=== PATIENT | female | born 1945 | race Caucasian/White ===

== ENCOUNTER 2023-09-11 09:30 | Observation (INO) | payer MEDICARE, OTHER, SELFPAY ==
--- NOTE | 2023-09-11 09:39 | XR_ITS ---
The [address] [address] Patient Name: MAXIMINO RODRIGUEZ MRN: [id number] date: 1945 Sex: F Assigned Patient Location: ER Current Patient Location: .[facility] Accession/Order Number: [id number] Exam Date: 09/11/2023 10:08 Report Date: 09/11/2023 10:42 At the request of: CLARENCE ALLAN Procedure: XR foot RT min 3V EXAM: XR foot RT min 3V, XR ankle RT min 3V HISTORY: fall COMPARISON: None. TECHNIQUE: AP, lateral, oblique radiographs of the foot AP, lateral, oblique radiographs of the ankle labeled right FINDINGS: Foot: Plantar calcaneal enthesophyte. No acute fracture or dislocation the foot. Obliquely oriented fracture of the distal fibula noted at the ankle. There are mild degenerative changes of the first metatarsophalangeal joint. Demineralization. Ankle: Fracture of the distal fibula above the joint line. 0.2 cm of lateral displacement of distal fragment. Demineralization. Ankle soft tissue swelling. Plantar calcaneal enthesophyte. XR/XR foot RT min 3V IMPRESSION: Ankle: 1. Mildly displaced obliquely oriented distal fibular fracture extending above the joint line. Foot: 1. No acute osseous abnormality of the foot. Electronically authenticated by: KIM DAVIS Date: 09/11/2023 10:42
[2023-09-11 09:40] VITALS: BP 210/98; PULSE 98; RESP 18; TEMP 36.9; O2SAT 98; BMI 45.4
--- NOTE | 2023-09-11 09:40 | XR_ITS ---
The [address] [address] Patient Name: MAXIMINO RODRIGUEZ MRN: [id number] date: 1945 Sex: F Assigned Patient Location: ER Current Patient Location: .[facility] Accession/Order Number: [id number] Exam Date: 09/11/2023 10:08 Report Date: 09/11/2023 10:42 At the request of: CLARENCE ALLAN Procedure: XR ankle RT min 3V EXAM: XR foot RT min 3V, XR ankle RT min 3V HISTORY: fall COMPARISON: None. TECHNIQUE: AP, lateral, oblique radiographs of the foot AP, lateral, oblique radiographs of the ankle labeled right FINDINGS: Foot: Plantar calcaneal enthesophyte. No acute fracture or dislocation the foot. Obliquely oriented fracture of the distal fibula noted at the ankle. There are mild degenerative changes of the first metatarsophalangeal joint. Demineralization. Ankle: Fracture of the distal fibula above the joint line. 0.2 cm of lateral displacement of distal fragment. Demineralization. Ankle soft tissue swelling. Plantar calcaneal enthesophyte. XR/XR ankle RT min 3V IMPRESSION: Ankle: 1. Mildly displaced obliquely oriented distal fibular fracture extending above the joint line. Foot: 1. No acute osseous abnormality of the foot. Electronically authenticated by: KIM DAVIS Date: 09/11/2023 10:42
--- NOTE | 2023-09-11 09:46 | ED.LOWEXI1 ---
HPI - Extremity Injury (Lower) General Chief Complaint: Extremity Injury, Lower Stated Complaint: LOWER EXTREMITY INJURY/PAIN Time Seen by Provider: 09/11/23 09:39 Source: patient Mode of arrival: ambulance Limitations: physical limitation History of Present Illness HPI Narrative: 78-year-old female presents for right ankle and foot pain. She injured it last night getting into a car. She states she cannot bear weight on it now. She didn't hit her head and sustaining no other injuries. No knee pain. The pain is moderate. Related Data Home Medications Medication Instructions Recorded Confirmed levothyroxine 300 mcg tablet 300 mcg PO DAILY 09/11/23 09/11/23 metoprolol tartrate 100 mg tablet 100 mg PO DAILY 09/11/23 09/11/23 Allergies Allergy/AdvReac Type Severity Reaction Status Date / Time No Known Drug Allergies Allergy Verified 09/11/23 09:40 Review of Systems ROS Narrative A ten point review of systems is negative except as noted above. Exam Narrative Exam Narrative: Nurses note and vital signs reviewed and patient is not hypoxic. General: The patient appears well and in no apparent distress. Patient is resting comfortably on cart. Skin: Warm, dry, no pallor noted. There is no rash noted. Head: Normocephalic, atraumatic Eye: Normal conjunctiva, no drainage Ears, Nose, Mouth, and Throat: oral mucosa is moist. Nares patent. Cardiovascular: Regular Rate and Rhythm Respiratory: Patient is in no distress, no accessory muscle use, lungs are clear to auscultation, no wheezing, rales or rhonchi Back: non-tender GI: often nontender Musculoskeletal: bruising and swelling present in the right foot and ankle. Skin intact. Neurological: A&O, normal speech Psychiatric: Cooperative Constitutional Vital Signs, click to edit/add: Last Vital Signs Temp 98.4 F 09/11/23 09:40 Pulse 98 H 09/11/23 09:40 Resp 18 09/11/23 09:40 BP 210/98 H 09/11/23 09:40 Pulse Ox 98 09/11/23 09:40 O2 Del Method Room Air 09/11/23 09:40 Course Vital Signs Vital signs: Vital Signs Temperature 98.4 F 09/11/23 09:40 Pulse Rate 98 H 09/11/23 09:40 Respiratory Rate 18 12/10/23 09:40 Blood Pressure 210/98 H 09/11/23 09:40 Pulse Oximetry 98 09/11/23 09:40 Oxygen Delivery Method Room Air 09/11/23 09:40 Temperature 98.4 F 09/11/23 09:40 Pulse Rate 98 H 09/11/23 09:40 Respiratory Rate 18 09/11/23 09:40 Blood Pressure 210/98 H 09/11/23 09:40 Pulse Oximetry 98 09/11/23 09:40 Oxygen Delivery Method Room Air 09/11/23 09:40 MDM - Extremity Injury (Lower) MDM Narrative Medical decision making narrative: distal fibular fractures identified. Case discussed with Dr. Carver and the patient is being admitted to Dr. Ken with whom I also discussed the case. Short leg splint applied by me, application is appropriate, she is neurovascularly intact. Findings are discussed with the patient and her family. Differential Diagnosis Differential diagnosis: Likely ankle sprain and strain and ankle fracture Imaging Data foot and ankle x-rays: Radiologist's impression: Procedure: XR ankle RT min 3V EXAM: XR foot RT min 3V, XR ankle RT min 3V HISTORY: fall COMPARISON: None. TECHNIQUE: AP, lateral, oblique radiographs of the foot AP, lateral, oblique radiographs of the ankle labeled right FINDINGS: Foot: Plantar calcaneal enthesophyte. No acute fracture or dislocation the foot. Obliquely oriented fracture of the distal fibula noted at the ankle. There are mild degenerative changes of the first metatarsophalangeal joint. Demineralization. Ankle: Fracture of the distal fibula above the joint line. 0.2 cm of lateral displacement of distal fragment. Demineralization. Ankle soft tissue swelling. Plantar calcaneal enthesophyte. IMPRESSION: Ankle: 1. Mildly displaced obliquely oriented distal fibular fracture extending above the joint line. Foot: 1. No acute osseous abnormality of the foot. Electronically authenticated by: KIM DAVIS Date: 09/11/2023 10 Discharge Plan Discharge Chief Complaint: Extremity Injury, Lower Time of Disposition Decision: 11:19 Prescriptions / Home Meds: No Action levothyroxine 300 mcg tablet 300 mcg PO DAILY metoprolol tartrate 100 mg tablet 100 mg PO DAILY
[2023-09-11 11:10] VITALS: BP 190/88
--- NOTE | 2023-09-11 11:48 | ECG_ITS ---
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
[2023-09-11 11:56] LABS: Basophils Percent Auto 0.4 % (0.2-2.0); Eosinophils Absolute Auto 0.1 10^3/uL (0.0-0.7); Eosinophils Percent Auto 0.7 % (0.9-7.0); Hematocrit 35.2 % (36.0-48.0); Hemoglobin 12.5 g/dL (12.0-16.0); Immature Granulocytes Abs Auto 0.02 10^3/uL (0.00-0.03); Immature Granulocytes Pct Auto 0.2 % (0.0-0.5); Lymphocytes Absolute Auto 1.7 10^3/uL (1.2-3.8); Mean Corpuscular HGB Conc 35.5 g/dL (29.9-35.2); Mean Corpuscular Hemoglobin 34.7 pg (26.7-34.0); Mean Corpuscular Volume 97.8 fL (81.0-99.0); Mean Platelet Volume 11.1 fL (9.5-13.5); Monocytes Absolute Auto 0.7 10^3/uL (0.3-0.8); Monocytes Percent Auto 8.8 % (1.7-12.0); Neutrophils Absolute Auto 5.6 10^3/uL (1.4-6.5); Neutrophils Percent Auto 68.9 % (43.0-75.0); Platelet Count 189 10^3/uL (150-450); Red Cell Distribution Width 14.5 % (11.0-15.0); White Blood Count 8.2 10^3/uL (4.0-11.0)
[2023-09-11 12:08] LABS: Alanine Aminotransferase 16 U/L (14-59); Albumin Globulin Ratio 0.9; Albumin Level 3.4 g/dL (3.4-5.0); Alkaline Phosphatase 63 U/L (46-116); Anion Gap 15.1; Aspartate Amino Transferase 18 U/L (15-37); BUN Creatinine Ratio 15.3; Bilirubin Total 1.4 mg/dL (0.2-1.0); Calcium 8.7 mg/dL (8.5-10.1); Carbon Dioxide 23.8 mmol/L (21.0-32.0); Chloride 107 mmol/L (98-107); Estimated GFR (African America >60 (>=60); Estimated GFR (Non-African Ame 55 (>=60); Globulin 3.8 g/dL; Glucose 114 mg/dL (74-106); Potassium 3.9 mmol/L (3.5-5.1); Sodium 142 mmol/L (136-145); Total Protein 7.2 g/dL (6.4-8.2)
[2023-09-11 12:31] LABS: INR 0.96; Partial Thromboplastin Time 28.1 sec (22.3-36.2); Prothrombin Time 10.2 sec (9.0-11.6)
[2023-09-11 12:42] VITALS: BP 182/75; PULSE 87; RESP 18; TEMP 36.6; O2SAT 94; BMI 45.0
--- NOTE | 2023-09-11 13:55 | P.HP_ITS ---
H&P: HPI History of Present Illness Chief complaint: LOWER EXTREMITY INJURY/PAIN RT DISTAL FIBULAR FRAC Narrative: patient is a 78-year-old female with past medical history of hypertension, and hypothyroidism. She was at her granddaughter's wedding yesterday when she fell and twisted her ankle when getting into a car. She could not get up or bear weight on her right ankle at the time of injury. She came home and mostly rested and her recliner and she was brought to the Emergency Room today. X-ray revealed a displaced right distal fibular fracture extending just above the joint line. Patient was admitted for further evaluation. At the time of admission exam the patient states that her pain is well controlled. Her ankle was placed in a soft splint. She was made nonweightbearing on the right. No other issues or concerns at this time. She does state that she lives home alone and up into this point she was able to get around with no issues including mowing her own lawn. Review of Systems ROS Narrative ROS: a complete review of systems were reviewed with patient and are positive as below or listed in History of Chief Complaint. General: no fever, chills, night sweats Head: no headache, trauma, visual changes, nausea or vomiting Skin: no reported rashes, itching or sores Eyes: no blurriness of vision Ears: no reported hearing loss, vertigo, earache, or tinnitus Throat: no sore throat, hoarseness, swelling of neck, or tongue pain Heart: no chest pain Lungs: no shortness of breath or cough GI: no diarrhea or vomiting/nausea Urinary: no urinary urgency, frequency or pain Neuro: no numbness or tingling HEM: no bleeding issues or bruising ENDO: no thyroid problems Psych: no anxiety or depression [facility] Medical History (Updated 09/11/23 @ 14:16 by Deedee Ken DO) Obesity, morbid, BMI 40.0-49.9 ?E66.01 - Morbid (severe) obesity due to excess calories (ICD-10) Hypothyroidism (acquired) ?E03.9 - Hypothyroidism, unspecified (ICD-10) Hypertension ?I10 - Essential (primary) hypertension (ICD-10) Surgical History (Updated 09/11/23 @ 14:16 by Deedee Ken DO) S/P bilateral foot surgery ?Z98.890 - Other specified postprocedural states (ICD-10) S/P right mastectomy ?Z90.11 - Acquired absence of right breast and nipple (ICD-10) Meds Home Medications and Allergies Home Medications Medication Instructions Recorded Confirmed Type levothyroxine 300 mcg tablet 300 mcg PO DAILY 09/11/23 09/11/23 History metoprolol tartrate 100 mg tablet 100 mg PO DAILY 09/11/23 09/11/23 History Allergies Allergy/AdvReac Type Severity Reaction Status Date / Time No Known Drug Allergies Allergy Verified 09/11/23 09:40 Exam Narrative Exam Narrative: General: Patient is alert, and oriented to person, place and time with normal affect, proper hygiene, morbid obesity Skin: no visible rashes, or ulcers, right ankle splint c/d/i Head: atraumatic, acephalic Eyes: PERRLA, no nystagmus present, conjunctiva clear, no scleral icterus Ears: normal gross auditory acuity Nose: symmetric, no discharge, no maxillary or frontal sinus tenderness Heart: Normal rate and rhythm, no murmurs/rubs/gallops Lungs: no audible wheezes, crackles and normal breath sounds all lung cooper Abdomen: Normal audible bowel sounds, no distension, No palpable masses, no organomegaly, no rebound/guarding/ or rigidity Musculoskeletal: ROM is limited due to being in hospital bed, no swelling bilateral lower extremities, palpable pain on the external right ankle Neuro: CN II-X grossly intact Constitutional Vital Signs, click to edit/add: Last Vital Signs Temp 97.9 F 09/11/23 12:42 Pulse 87 09/11/23 12:42 Resp 18 09/11/23 12:42 BP 182/75 H 09/11/23 12:42 Pulse Ox 94 L 09/11/23 12:42 O2 Del Method Room Air 09/11/23 13:13 Results Labs Labs: Short CBC 09/11/23 Range/Units 09:42 WBC 8.2 (4.0-11.0) 10^3/uL Hgb 12.5 (12.0-16.0) g/dL Hct 35.2 L (36.0-48.0) % Plt Count 189 (150-450) 10^3/uL BMP 09/11/23 09:42 Sodium 142 Potassium 3.9 Chloride 107 Carbon Dioxide 23.8 BUN 15.0 Creatinine 0.98 Glucose 114 H Calcium 8.7 Liver Function 09/11/23 Range/Units 09:42 Total Bilirubin 1.4 H (0.2-1.0) mg/dL AST 18 (15-37) U/L ALT 16 (14-59) U/L Alkaline Phosphatase 63 (46-116) U/L Albumin 3.4 (3.4-5.0) g/dL Assessment and Plan Assessment and Plan (1) Closed right fibular fracture: Assessment and Plan: patient made nonweightbearing on the right, patient in a soft posterior splint, podiatry consultation, will check EKG and coagulation labs just in case the surgery but surgical intervention unlikely. PT OT evaluation and treat. And pain control with Tylenol or oxycodone as needed. Qualifiers: Encounter type: initial encounter Fibula location: distal Fracture morphology: unspecified fracture morphology Qualified Code(s): S82.831A - Other fracture of upper and lower end of right fibula, initial encounter for closed fracture (2) Hypertension: Assessment and Plan: continue home metoprolol Qualifiers: Hypertension type: primary hypertension Qualified Code(s): I10 - Essential (primary) hypertension (3) Hypothyroidism (acquired): Assessment and Plan: continue home levothyroxine (4) Obesity, morbid, BMI 40.0-49.9: Assessment and Plan: will encourage weight loss Plan patient is a DNR CCA Lovenox for deep vein thrombosis prophylaxis Patient is an inpatient status and is expected to stay more than two midnights
[2023-09-11 14:10] VITALS: BP 168/83; PULSE 96; RESP 18; O2SAT 94
[2023-09-11] MEDS: LEVOTHYROXINE SODIUM 100 MCG TABLET 300 MCG PO (14:15)
[2023-09-11] MEDS: METOPROLOL TARTRATE 100 MG TABLET PO (14:16)
[2023-09-11] MEDS: ENOXAPARIN SODIUM 40 MG/0.4 ML SYRINGE SUBQ (16:18)
[2023-09-11] MEDS: OXYCODONE HCL/ACETAMINOPHEN 5MG/325MG 1 TAB PO (18:07)
[2023-09-11 21:11] VITALS: BP 126/72; PULSE 72; RESP 20; TEMP 36.8; O2SAT 93
[2023-09-12] VITALS (8 sets, daily range): BP systolic 142–170; BP diastolic 63–81; PULSE 68–83; RESP 18–20; TEMP 36.5–36.6; O2SAT 92–95
[2023-09-12 04:57] LABS: Basophils Percent Auto 0.3 % (0.2-2.0); Eosinophils Absolute Auto 0.1 10^3/uL (0.0-0.7); Eosinophils Percent Auto 1.7 % (0.9-7.0); Hemoglobin 11.1 g/dL (12.0-16.0); Immature Granulocytes Abs Auto 0.01 10^3/uL (0.00-0.03); Immature Granulocytes Pct Auto 0.2 % (0.0-0.5); Lymphocytes Percent Auto 32.4 % (20.5-60.0); Mean Corpuscular HGB Conc 32.6 g/dL (29.9-35.2); Mean Corpuscular Hemoglobin 32.6 pg (26.7-34.0); Mean Platelet Volume 11.7 fL (9.5-13.5); Monocytes Absolute Auto 0.7 10^3/uL (0.3-0.8); Monocytes Percent Auto 11.3 % (1.7-12.0); Neutrophils Absolute Auto 3.4 10^3/uL (1.4-6.5); Neutrophils Percent Auto 54.1 % (43.0-75.0); Platelet Count 126 10^3/uL (150-450); Red Cell Distribution Width 14.6 % (11.0-15.0); White Blood Count 6.3 10^3/uL (4.0-11.0)
[2023-09-12 05:28] LABS: Alanine Aminotransferase 33 U/L (14-59); Albumin Globulin Ratio 0.9; Albumin Level 2.9 g/dL (3.4-5.0); Alkaline Phosphatase 59 U/L (46-116); Anion Gap 10.5; Aspartate Amino Transferase 37 U/L (15-37); BUN Creatinine Ratio 21.9; Bilirubin Total 1.4 mg/dL (0.2-1.0); Calcium 8.4 mg/dL (8.5-10.1); Carbon Dioxide 28.6 mmol/L (21.0-32.0); Chloride 107 mmol/L (98-107); Estimated GFR (African America >60 (>=60); Estimated GFR (Non-African Ame 51 (>=60); Globulin 3.3 g/dL; Glucose 106 mg/dL (74-106); Potassium 4.1 mmol/L (3.5-5.1); Sodium 142 mmol/L (136-145); Total Protein 6.2 g/dL (6.4-8.2)
[2023-09-12] MEDS: OXYCODONE HCL/ACETAMINOPHEN 5MG/325MG 1 TAB PO (05:48)
[2023-09-12] MEDS: LEVOTHYROXINE SODIUM 100 MCG TABLET 300 MCG PO (05:48)
--- NOTE | 2023-09-12 08:46 | P.PN_ITS ---
Progress Note: Subjective Subjective Interval history: Patient is resting comfortably sitting up in chair. She denies pain except in the back of the ankle near the splint. No fevers or chills, no shortness of breath or chest pain. Discussed case with Podiatry and agreed she is non- surgical. Plan to see her today and providing walking boot that she can be partially weight baring with Walker. Exam Narrative Exam Narrative: General: Patient is alert, and oriented to person, place and time with normal affect, proper hygiene, morbid obesity Heart: Normal rate and rhythm, no murmurs/rubs/gallops Lungs: no audible wheezes, crackles and normal breath sounds all lung cooper Abdomen: Normal audible bowel sounds, no distension, No palpable masses, no organomegaly, no rebound/guarding/ or rigidity Musculoskeletal: no swelling bilateral lower extremities, right splint c/d/i Neuro: CN II-X grossly intact Constitutional Vital Signs, click to edit/add: Last Vital Signs Temp 97.9 F 09/12/23 07:47 Pulse 80 09/12/23 08:00 Resp 18 09/12/23 08:00 BP 142/77 H 09/12/23 07:47 Pulse Ox 92 L 09/12/23 06:00 O2 Del Method Room Air 09/12/23 07:47 Progress Note: Objective Labs Labs: Short CBC 09/11/23 09/12/23 Range/Units 09:42 04:13 WBC 8.2 6.3 (4.0-11.0) 10^3/uL Hgb 12.5 11.1 L (12.0-16.0) g/dL Hct 35.2 L 34.0 L (36.0-48.0) % Plt Count 189 126 L (150-450) 10^3/uL BMP 09/11/23 09/12/23 09:42 04:13 Sodium 142 142 Potassium 3.9 4.1 Chloride 107 107 Carbon Dioxide 23.8 28.6 BUN 15.0 23.0 H Creatinine 0.98 1.05 H Glucose 114 H 106 Calcium 8.7 8.4 L Liver Function 09/11/23 09/12/23 Range/Units 09:42 04:13 Total Bilirubin 1.4 H 1.4 H (0.2-1.0) mg/dL AST 18 37 (15-37) U/L ALT 16 33 (14-59) U/L Alkaline Phosphatase 63 59 (46-116) U/L Albumin 3.4 2.9 L (3.4-5.0) g/dL Progress Note: A&P Assessment and Plan (1) Closed right fibular fracture: Assessment and Plan: podiatry providing walking boot, for partial weight bearing with walker. PT/OT treatment and plan of care moving forward. Because she is non-surgical and normal labs, patient should have been made observation status so will change t hat. Qualifiers: Encounter type: initial encounter Fibula location: distal Fracture morphology: unspecified fracture morphology Qualified Code(s): S82.831A - Other fracture of upper and lower end of right fibula, initial encounter for closed fracture (2) Hypertension: Assessment and Plan: continue home medications Qualifiers: Hypertension type: primary hypertension Qualified Code(s): I10 - Essential (primary) hypertension (3) Hypothyroidism (acquired): Assessment and Plan: continue home medications (4) Obesity, morbid, BMI 40.0-49.9: Assessment and Plan: encourage weight loss once improved. Plan continue lovenox for DVT prophylaxis patient is in observation status podiatry consult today
[2023-09-12] MEDS: METOPROLOL TARTRATE 100 MG TABLET PO (08:58)
--- NOTE | 2023-09-12 09:59 | CM.NOTE ---
Rounding with Dr. Ken and DONN Shetty. Discussed with patient no plan for surgery per podiatry recommendations. Continue to wait for PT and OT evals. Dr. Ken to clarify weight bearing status with Dr. Carver.
[2023-09-12] MEDS: ONDANSETRON 4 MG RAPDIS TABLET PO (10:02)
--- NOTE | 2023-09-12 10:31 | P.CN_ITS ---
Consult Note: HPI Data of Consult Patient: new to practice Consult date: 09/12/23 Requesting Physician: Deedee Ken DO Primary Care Provider: ANA CARTER Consult Narrative Reason for consult: Right ankle fracture Narrative: patient is a 78-year-old female who suffered a mechanical ground-level fall while getting into a vehicle on the night of 09/10/2023. She had difficulty bearing weight over the following twenty-four hours which prompted her to present to the emergency department the following morning. X-rays revealed a displaced lateral malleolus fracture therefore she was splinted in the emergency department and admitted. She does live alone and does have multiple comorbidities and is an extremely high risk for subsequent falls. At bedside she is pleasant and understanding harvest for her circumstances. She denies any other bodily pain or injury. She relates that the splint is fairly comfortable. She denies calf pain, chest pain and shortness of breath. cc:: CC: Deedee Ken DO Review of Systems ROS Status of ROS 10 or more systems reviewed and unremark able except as noted in history and below [facility] Medical History (Updated 09/12/23 @ 10:39 by Bry Carver DPM) Obesity, morbid, BMI 40.0-49.9 ?E66.01 - Morbid (severe) obesity due to excess calories (ICD-10) Hypothyroidism (acquired) ?E03.9 - Hypothyroidism, unspecified (ICD-10) Hypertension ?I10 - Essential (primary) hypertension (ICD-10) Surgical History (Updated 09/11/23 @ 14:16 by Deedee Ken DO) S/P bilateral foot surgery ?Z98.890 - Other specified postprocedural states (ICD-10) S/P right mastectomy ?Z90.11 - Acquired absence of right breast and nipple (ICD-10) Meds Home Medications and Allergies Home Medications Medication Instructions Recorded Confirmed Type levothyroxine 300 mcg tablet 300 mcg PO DAILY 09/11/23 09/11/23 History metoprolol tartrate 100 mg tablet 100 mg PO DAILY 09/11/23 09/11/23 History Allergies Allergy/AdvReac Type Severity Reaction Status Date / Time No Known Drug Allergies Allergy Verified 09/11/23 09:40 Exam Narrative Exam Narrative: splint to the right ankle is clean dry and intact. She is able to wiggle her toes. There is no pain on palpation over the medial malleolus navicular or 5th metatarsal base. Skin is intact without tenting. No calf pain on squeeze Constitutional Vital Signs, click to edit/add: Last Vital Signs Temp 97.9 F 09/12/23 07:47 Pulse 80 09/12/23 08:00 Resp 18 09/12/23 08:00 BP 142/77 H 09/12/23 07:47 Pulse Ox 92 L 09/12/23 06:00 O2 Del Method Room Air 09/12/23 07:47 Results Labs Labs: Short CBC 09/11/23 09/12/23 Range/Units 09:42 04:13 WBC 8.2 6.3 (4.0-11.0) 10^3/uL Hgb 12.5 11.1 L (12.0-16.0) g/dL Hct 35.2 L 34.0 L (36.0-48.0) % Plt Count 189 126 L (150-450) 10^3/uL BMP 09/11/23 09/12/23 09:42 04:13 Sodium 142 142 Potassium 3.9 4.1 Chloride 107 107 Carbon Dioxide 23.8 28.6 BUN 15.0 23.0 H Creatinine 0.98 1.05 H Glucose 114 H 106 Calcium 8.7 8.4 L Liver Function 09/11/23 09/12/23 Range/Units 09:42 04:13 Total Bilirubin 1.4 H 1.4 H (0.2-1.0) mg/dL AST 18 37 (15-37) U/L ALT 16 33 (14-59) U/L Alkaline Phosphatase 63 59 (46-116) U/L Albumin 3.4 2.9 L (3.4-5.0) g/dL Assessment and Plan Assessment and Plan (1) Hypertension: Qualifiers: Hypertension type: primary hypertension Qualified Code(s): I10 - Essential (primary) hypertension (2) Hypothyroidism (acquired): (3) Obesity, morbid, BMI 40.0-49.9: (4) Closed displaced fracture of lateral malleolus of right fibula: Onset Date: 09/10/23 Assessment and Plan: Nonoperative management Qualifiers: Encounter type: initial encounter Qualified Code(s): S82.61XA - Displaced fracture of lateral malleolus of right fibula, initial encounter for closed fracture Plan patient seen at bedside and communicated plan with the hospitalist Dr. Ken Nonoperative care with protected partial weightbearing in cam boot which will be fitted and dispensed prior to discharge. She should use a walker for balance She is a high risk for subsequent falls She is to f/u within 2 weeks
--- NOTE | 2023-09-12 13:42 | CM.NOTE ---
Important Message From Medicare discussed with pt, pt verbalizes understanding and signs paper. Original given to pt and copy placed on pt's chart.
--- NOTE | 2023-09-12 14:32 | CM.NOTE ---
Discussed with pt and children regarding PT recommendations and going for skilled therapy at discharge. Discussed with pt the out of pocket expense with skilled therapy d/t not meeting for 3 day inpatient hospital stay. Pt verbalizes understanding and refuses skilled therapy at this time. Pt wishes are to go home with HH services. Pt does have family to assist at home. Daughter Renee offers pt to come to her home and stay at discharge, pt refuses to live with her children. Pt states she would like to return home with HH services. Pt given Medicare. Gov 5 star rating list for HH agencies. Pt and children will look at list and then make their choice.
--- NOTE | 2023-09-12 14:57 | CM.NOTE ---
Pt has decided on [facility]. Clinical faxed to [facility] for new referral.
[2023-09-12] MEDS: ENOXAPARIN SODIUM 40 MG/0.4 ML SYRINGE SUBQ (16:00)
[2023-09-13 05:13] VITALS: BP 160/78; PULSE 83; RESP 18; TEMP 36.7; O2SAT 90
[2023-09-13] MEDS: ACETAMINOPHEN 325 MG TABLET 650 MG PO ×2 (05:20→15:00)
[2023-09-13 05:25] LABS: Basophils Percent Auto 0.5 % (0.2-2.0); Eosinophils Absolute Auto 0.1 10^3/uL (0.0-0.7); Eosinophils Percent Auto 2.2 % (0.9-7.0); Hematocrit 34.6 % (36.0-48.0); Hemoglobin 11.6 g/dL (12.0-16.0); Immature Granulocytes Abs Auto 0.01 10^3/uL (0.00-0.03); Immature Granulocytes Pct Auto 0.2 % (0.0-0.5); Lymphocytes Absolute Auto 2.6 10^3/uL (1.2-3.8); Lymphocytes Percent Auto 40.1 % (20.5-60.0); Mean Corpuscular HGB Conc 33.5 g/dL (29.9-35.2); Mean Corpuscular Hemoglobin 33.4 pg (26.7-34.0); Mean Corpuscular Volume 99.7 fL (81.0-99.0); Mean Platelet Volume 10.9 fL (9.5-13.5); Monocytes Absolute Auto 0.6 10^3/uL (0.3-0.8); Neutrophils Absolute Auto 3.1 10^3/uL (1.4-6.5); Platelet Count 168 10^3/uL (150-450); Red Blood Count 3.47 10^6/uL (4.20-5.40); Red Cell Distribution Width 14.6 % (11.0-15.0); White Blood Count 6.5 10^3/uL (4.0-11.0)
[2023-09-13 05:41] LABS: Alanine Aminotransferase 43 U/L (14-59); Albumin Globulin Ratio 0.8; Alkaline Phosphatase 58 U/L (46-116); Anion Gap 10.3; Aspartate Amino Transferase 30 U/L (15-37); BUN Creatinine Ratio 20.4; Bilirubin Total 1.2 mg/dL (0.2-1.0); Calcium 8.8 mg/dL (8.5-10.1); Carbon Dioxide 26.8 mmol/L (21.0-32.0); Chloride 108 mmol/L (98-107); Estimated GFR (African America 59 (>=60); Estimated GFR (Non-African Ame 49 (>=60); Globulin 3.6 g/dL; Glucose 102 mg/dL (74-106); Potassium 4.1 mmol/L (3.5-5.1); Sodium 141 mmol/L (136-145); Total Protein 6.6 g/dL (6.4-8.2)
[2023-09-13] MEDS: LEVOTHYROXINE SODIUM 100 MCG TABLET 300 MCG PO (06:44)
[2023-09-13] MEDS: METOPROLOL TARTRATE 100 MG TABLET PO (08:22)
--- NOTE | 2023-09-13 08:55 | P.DS_ITS ---
DS: Providers Provider Date of admission: 09/11/23 11:41 Primary care physician: ANA CARTER Admitting clinician: Deedee Ken Consults: 09/11/23 11:43 Occupational Therapy Eval and Treat Routine Reason for consultation: NWB right Has provider been notified: No Physical Therapy Eval and Treat Routine Reason for consultation: NWB Right Has provider been notified: No 09/11/23 11:48 Consult to Podiatry Routine Consulting Provider: Bry Carver Reason for consultation: right displaced distal fibular fracture Has provider been notified: No Discharging clinician: Deedee Ken DS: Diagnosis Discharge Diagnosis (1) Closed right fibular fracture: Qualifiers: Encounter type: initial encounter Fibula location: distal Fracture morphology: unspecified fracture morphology Qualified Code(s): S82.831A - Other fracture of upper and lower end of right fibula, initial encounter for closed fracture (2) Hypertension: Qualifiers: Hypertension type: primary hypertension Qualified Code(s): I10 - Essential (primary) hypertension (3) Hypothyroidism (acquired): (4) Obesity, morbid, BMI 40.0-49.9: DS: Summary Hospital Course Hospital Course: Patient is a 78-year-old female with past medical history of hypertension, and hypothyroidism. She was at her granddaughter's wedding when she fell and twisted her ankle when getting into a car. She could not get up or bear weight on her right ankle at the time of injury. She came home and mostly rested and her recliner and she was brought to the Emergency Room. X-ray revealed a displaced right distal fibular fracture extending just above the joint line. Patient was admitted for further evaluation. Podiatry was consulted, she was non-surgical. She was placed in CAM walking boot. She can be partial weight bearing and is using a walker. She has done well with PT. She will be discharged home today with close podiatry follow up and with [facility]. She is take Tylenol and /or Motrin for pain and resume all home medications. She is to return to the ER with any worsening signs or symptoms. Remember to keep follow up appointments. Labs and vitals also stable at the time of discharge. Status at Discharge Functional status at discharge: uses cane/walker Overall status at discharge: patient is progressing back to baseline Time Spent with Patient Time attestation: Total time spent providing and/or coordinating discharge services: Time spent: greater than 30 minutes Exam Narrative Exam Narrative: General: Patient is alert, and oriented to person, place and time with normal affect, proper hygiene, morbid obesity Heart: Normal rate and rhythm, no murmurs/rubs/gallops Lungs: no audible wheezes, crackles and normal breath sounds all lung cooper Abdomen: Normal audible bowel sounds, no distension, No palpable masses, no organomegaly, no rebound/guarding/ or rigidity Musculoskeletal: no swelling bilateral lower extremities, right cam boot in place Neuro: CN II-X grossly intact Constitutional Vital Signs, click to edit/add: Last Vital Signs Temp 98.1 F 09/13/23 05:13 Pulse 83 09/13/23 05:13 Resp 18 09/13/23 05:13 BP 160/78 H 09/13/23 05:13 Pulse Ox 90 L 09/13/23 05:13 O2 Del Method Room Air 09/13/23 05:13 DS: Data Data Completed and Pending Labs on day of discharge: Labs from last 24 hours 09/13/23 04:37 WBC 6.5 RBC 3.47 L Hgb 11.6 L Hct 34.6 L MCV 99.7 H MCH 33.4 MCHC 33.5 RDW 14.6 Plt Count 168 MPV 10.9 Neut % (Auto) 48.0 Lymph % (Auto) 40.1 [place] % (Auto) 9.0 Eos % (Auto) 2.2 Baso % (Auto) 0.5 Neut # (Auto) 3.1 Lymph # (Auto) 2.6 [place] # (Auto) 0.6 Eos # (Auto) 0.1 Baso # (Auto) 0.0 Abs Immat Gran (auto) 0.01 Imm/Tot Granulo (auto) 0.2 Sodium 141 Potassium 4.1 Chloride 108 H Carbon Dioxide 26.8 Anion Gap 10.3 BUN 22.0 H Creatinine 1.08 H Est GFR ( Amer) 59 L Est GFR (Non-Af Amer) 49 L BUN/Creatinine Ratio 20.4 Glucose 102 Calcium 8.8 Total Bilirubin 1.2 H AST 30 ALT 43 Alkaline Phosphatase 58 Total Protein 6.6 Albumin 3.0 L Globulin 3.6 Albumin/Globulin Ratio 0.8 Discharge Plan Discharge Disposition: Home Health Service Condition: Good Discharge Medications: Continued levothyroxine 300 mcg tablet 300 mcg PO DAILY metoprolol tartrate 100 mg tablet 100 mg PO DAILY Activity: ambulate only with your walker and other Activity Detail: Partial weight bearing on the right leg/foot; wear boot daily continuous, follow up with podiatry as scheduled Diet: advance to your usual diet Patient Instructions: Ankle Fracture (DC), Walking Boot (DC) Activity Restrictions/Additional Instructions: Partial weight bearing on the right with walker wear walking boot continuous use walker for mobility Alternate Tylenol and Motrin for pain as needed Forms: Portal Instructions Follow Up Appointments: @ 1:45pm with Dr. Carver [facility], [address] [place] [address] , [place] [phone] Discharge location: Home with [facility]
--- NOTE | 2023-09-13 10:43 | PT.DAILY ---
Physical Therapy Daily Note PT Daily Note/Assess Start: 09/12/23 09:45 Freq: Status: Active Protocol: Document 09/13/23 10:39 ELISEO (Rec: 09/13/23 10:43 ELISEO [id number]) Physical Therapy Daily Note/Assessment Time In/Time Out Time In 09:50 Time Out 10:05 Pain In Pain N/A Pain Out Pain N/A Subjective Subjective Pt exiting restroom with OT at this time when TRAINING PROFESSIONAL takes over care. Pt is PWB R with boot and RW. Therapeutic Exercise Time Therapeutic Exercise Minutes (minutes) 4 Therapeutic Exercise Units 0 Therapeutic Exercise Treatment Therapeutic Exercise Treatment Seated ex complete in BS chair 10x ea. needs occ rest break due to SOB/fatigue from walking back to chair. Therapeutic Activity Time Therapeutic Activity Minutes (minutes) 5 Therapeutic Activity Units 1 Therapeutic Activity Treatment Therapeutic Activity Comments Pt amb with RW from restroom to BS chair 30' with boot on R foot. Pt does good maintaining PWB with weight through hands on RW. Pt sits in BS chair and needs short rest break before attempting seated ex. Declines wanting to walk again at this time. remains in BS chair upon completion with call light in reach and needs met Total Physical Therapy Time Total Therapy Minutes 9 Total Physical Therapy Units 1 Summary Daily Note Summary Easily fatigued with activity today. Would benefit from SNF stay to build strength/ endurance to return to PLOF.
--- NOTE | 2023-09-13 11:38 | CM.NOTE ---
Rounds made with zuleima Murphy to discharge home today with HH services. Received call from [facility] they would accept patient but need a physician to cover patient for HH services. Patient has not seen Dr. Daley in a couple years and he is unable to follow patient for HH services.
--- NOTE | 2023-09-13 12:45 | CM.NOTE ---
Talked with Dr. Daley's office, pt will need to complete new paperwork before appt can be scheduled. Paperwork faxed over from Dr. Daley and patient is completing at this time.
--- NOTE | 2023-09-13 13:35 | CM.NOTE ---
Faxed paperwork back to Dr. Daley's office.
[2023-09-13 13:37] VITALS: BP 155/70; PULSE 83; RESP 20; TEMP 36.6; O2SAT 92
--- NOTE | 2023-09-13 14:14 | CM.NOTE ---
Called Dr. Daley's office f/u appt scheduled for Sep 19 2:00. Called [facility] back to update. Dr. Daley in agreement to follow pt for HH services. Updated pt and RN.
== END 2023-09-13 15:58 | disposition home health service (06) ==
LOC: ER 11:20 → MS 09-12 07:24
PROVIDERS: Admitting Provider Family Medicine; Emergency Provider Emergency Medicine; PCP Family Medicine; Visit Provider Family Medicine
DX: S82.831A Other fracture of upper and lower end of right fibula, initial encounter for closed fracture (principal); Z68.42 Body mass index [BMI] 45.0-49.9, adult; E03.9 Hypothyroidism, unspecified; I10 Essential (primary) hypertension; E66.01 Morbid (severe) obesity due to excess calories; Z66 Do not resuscitate; Z79.899 Other long term (current) drug therapy; Z79.890 Hormone replacement therapy; Z90.11 Acquired absence of right breast and nipple; Z98.890 Other specified postprocedural states; W18.39XA Other fall on same level, initial encounter
CPT/HCPCS: 29515; 36415; 73610; 73630; 80053; 85025; 85610; 85730; 93005; 96372; 97161; 97164; 97165; 97530; 97535; 99285; G0378

== ENCOUNTER 2023-09-28 13:48 | Outpatient (OUT) | payer MEDICARE, OTHER, SELFPAY ==
--- NOTE | 2023-09-28 | XR_ITS ---
[address] [address] Patient Name: MAXIMINO RODRIGUEZ MRN: [id number] date: 1945 Sex: F Assigned Patient Location: [facility] Current Patient Location: Accession/Order Number: [id number] Exam Date: 09/28/2023 13:50 Report Date: 09/30/2023 06:44 At the request of: TERRI AQUINO Procedure: XR foot RT min 3V PROCEDURE: XR foot RT min 3V, XR ankle RT min 3V HISTORY: RIGHT FOOT PAIN COMPARISON: XR right foot and ankle 09/11/2023 FINDINGS: BONES:Oblique fracture of the fibula at the distal diametaphyseal junction with lateral displacement of the distal fragment one third of the bone width. Slightly increased lucency of the fracture line; no appreciable callus formation. Intact tibiotalar joint. Small calcaneal plantar spur and moderate flattening of plantar arch. SOFT TISSUES:Marked soft tissue swelling surrounding the ankle and over dorsum of foot. EFFUSION:None visible. OTHER: Negative. XR/XR foot RT min 3V IMPRESSION: 1. Subacute distal fibular fracture with slightly greater displacement compared to prior study. Increased lucency of the fracture line likely represents bone resorption/early bone healing. 2. Marked soft tissue swelling. 3. Pes planus. Electronically authenticated by: MELA HERNANDEZ Date: 09/30/2023 06:44
--- NOTE | 2023-09-28 | XR_ITS ---
[place] [id number] Patient Name: MAXIMINO RODRIGUEZ MRN: [id number] date: 1945 Sex: F Assigned Patient Location: [facility] Current Patient Location: Accession/Order Number: [id number] Exam Date: 09/28/2023 13:50 Report Date: 09/30/2023 06:44 At the request of: TERRI AQUINO Procedure: XR ankle RT min 3V PROCEDURE: XR foot RT min 3V, XR ankle RT min 3V HISTORY: RIGHT FOOT PAIN COMPARISON: XR right foot and ankle 09/11/2023 FINDINGS: BONES:Oblique fracture of the fibula at the distal diametaphyseal junction with lateral displacement of the distal fragment one third of the bone width. Slightly increased lucency of the fracture line; no appreciable callus formation. Intact tibiotalar joint. Small calcaneal plantar spur and moderate flattening of plantar arch. SOFT TISSUES:Marked soft tissue swelling surrounding the ankle and over dorsum of foot. EFFUSION:None visible. OTHER: Negative. XR/XR ankle RT min 3V IMPRESSION: 1. Subacute distal fibular fracture with slightly greater displacement compared to prior study. Increased lucency of the fracture line likely represents bone resorption/early bone healing. 2. Marked soft tissue swelling. 3. Pes planus. Electronically authenticated by: MELA HERNANDEZ Date: 09/30/2023 06:44
== END 2023-09-28 13:49 | disposition home or self-care (01) ==
LOC: RAD 13:48
PROVIDERS: PCP Family Medicine; Visit Provider Podiatrist Foot & Ankle Surgery
DX: B35.3 Tinea pedis (principal); S82.61XD Displaced fracture of lateral malleolus of right fibula, subsequent encounter for closed fracture with routine healing
CPT/HCPCS: 73610; 73630

== ENCOUNTER 2023-10-26 13:28 | Outpatient (OUT) | payer MEDICARE, OTHER, SELFPAY ==
--- NOTE | 2023-10-26 | XR_ITS ---
The [address] [address] Patient Name: MAXIMINO RODRIGUEZ MRN: [id number] date: 1945 Sex: F Assigned Patient Location: [facility] Current Patient Location: RAD Accession/Order Number: [id number] Exam Date: 10/26/2023 13:37 Report Date: 10/26/2023 14:58 At the request of: TERRI AQUINO Procedure: XR ankle RT min 3V PROCEDURE: XR ankle RT min 3V COMPARISON: 09/28/2024 HISTORY: RIGHT ANKLE PAIN FINDINGS: BONES:Stable oblique fracture through the distal fibula at the syndesmosis with a single 4 mm of distraction. Some increased lysis with no callus formation or interval bony bridging. Moderate plantar enthesopathic spurring of the calcaneus SOFT TISSUES:Moderate soft tissue swelling EFFUSION:None visible. OTHER: Negative. XR/XR ankle RT min 3V IMPRESSION: Stable distal fibular fracture with no significant interval bony bridging Electronically authenticated by: DEIDRE HOOPER Date: 10/26/2023 14:58
--- OUTSIDE RECORDS SUMMARY | 2023-10-26 13:33 | XMS_ITS | CCD ---
Author Name Unknown Address [address] [place] [address] Organization [facility] Care Team Providers Care Explosive Expert Name Role Phone MILES, TERRI Hameed Attending Unavailable HOUSE, DR PEREZ Primary Care Unavailable HIGHLANDER, TERRI Hameed Admitting Unavailable HOUSE, DR PEREZ Attending Unavailable HOUSE, DR PEREZ Consulting Unavailable HOUSE, DR PEREZ Primary Care Unavailable HOUSE, DR PEREZ Admitting Unavailable HOUSE, DR PEREZ Admitting Unavailable SOPER, DR DEIDRE Lowe Consulting Unavailable HOUSE, DR PEREZ Attending Unavailable HOUSE, DR PEREZ Primary Care Unavailable HOUSE, DR PEREZ Consulting Unavailable PAY, DR ISIDRO Ganiesitting Unavailable HOUSE, DR PEREZ Primary Care Unavailable PAY, DR FELIX Attending Unavailable PAY, DR FELIX Consulting Unavailable PFEIFFER, SHAD Consulting Unavailable HIGHLANDER, TERRI Hameed Attending Unavailable HIGHLANDER, TERRI Hameed Admitting Unavailable DAVID, DR MELA Siegel Consulting Unavailable HOUSE, DR PEREZ Primary Care Unavailable HIGHLANDER, TERRI Hameed Consulting Unavailable HIGHLANDER, TERRI Hameed Attending Unavailable HOUSE, DR PEREZ Primary Care Unavailable HIGHLANDER, TERRI Hameed Admitting Unavailable Lee FAJARDO, Cr Graham Attending Unavailable HOUSE, ANA Santoro Primary Care Unavailable Problems Active Problems Problem Classification Problem Date Documented Da te Episodic/Chronic Cancer of breast (1 source) Personal history of malignant neoplasm of breast; Translations: [PERS HX MALIGNANT NEOPLASM BREAST] Onset: 04-01-2022 Episodic Essential hypertension (1 source) Essential (primary) hypertension; Translations: [ESSENTIAL PRIMARY HYPERTENSION] Onset: 03-22-2022 Chronic Other connective tissue disease (4 sources) Pain in right foot; Translations: [PAIN IN RIGHT FOOT] Onset: 02-08-2022 Episodic Other connective tissue disease (1 source) Pain in left foot; Translations: [PAIN IN LEFT FOOT] Onset: 02-22-2022 Episodic Other screening for suspected conditions (not mental disorders or infectious disease) (4 sources) Encounter for screening mammogram for malignant neoplasm of breast; Translations: [ENC SCR MAMMO MALIG NEOPLASM BREAST] Onset: 12-17-2021 Episodic Other skin disorders (5 sources) Disorder of the skin and subcutaneous tissue, unspecified; Translations: [DISORDER SKIN AND SUBQ TISSUE UNS] Onset: 02-22-2022 Episodic Residual codes; unclassified (1 source) Edema, unspecified; Translations: [EDEMA UNSPECIFIED] Onset: 03-22-2022 Episodic Residual codes; unclassified (1 source) Family history of malignant neoplasm of digestive organs; Translations: [FAM HX MALIG NEOPLASM DIGESTIV ORGN] Onset: 04-01-2022 Episodic Residual codes; unclassified (1 source) Family history of malignant neoplasm of trachea, bronchus and lung; Translations: [FAM HX MALIG NEOPLSM TRACH BRON LNG] Onset: 04-01-2022 Episodic Residual codes; unclassified (1 source) Family history of malignant neoplasm of bladder; Translations: [FAM HX MALIGNANT NEOPLASM BLADDER] Onset: 04-01-2022 Episodic Superficial injury; contusion (1 source) Blister (nonthermal), unspecified lesser toe(s), sequela; Translations: [BLISTER NONTHERM UNS LESR TOES SEQ] Onset: 03-22-2022 Episodic Thyroid disorders (5 sources) Hypothyroidism, unspecified; Translations: [HYPOTHYROIDISM UNSPECIFIED] Onset: 11-18-2021 Chronic Past or Other Problems Problem Classification Problem Date Documented Da te Episodic/Chronic Gastrointestinal hemorrhage (4 sources) Hemorrhage of anus and rectum; Translations: [HEMORRHAGE OF ANUS AND RECTUM] Onset: 09-09-2021 Episodic Genitourinary symptoms and ill-defined conditions (1 source) Other abnormal findings in urine; Translations: [OTHER ABNORMAL FINDINGS IN URINE] Onset: 09-11-2021 Episodic Mycoses (1 source) Tinea corporis; Translations: [TINEA CORPORIS] Onset: 09-11-2021 Episodic Results Test Name Value Interpretation Reference Range Facility Outside Recordson 10-19-2023 Outside Records [id number]#1.00OTG [facility] Outside Recordson 10-13-2023 Outside Records [id number]#1.00OT [facility] Outside Records [id number]#1.00OT [facility] Provider Orderson 10-13-2023 Provider Orders [id number]#1.00O [facility] Outside Recordson 09-28-2023 Outside Records [id number] [id number]#1.00O [facility] Patient Provided Health Data on 09-20-2023 Patient Provided Health Data [id number]#1.OT [facility] Provider Orderson 09-20-2023 Provider Orders [id number]#1.O [facility] Rad - Other Radiology Report on 09-20-2023 Rad - Other Radiology Report [id number]#1.OT [facility] Patient Handouton 09-19-2023 Patient Handout [id number]#1.OT [facility] XR FOOT CAM MIN 3 VIEWSon XR FOOT CAM MIN 3 VIEWS EXAMINATION: XR FOOT CAM MIN 3 VIEWS HISTORY: Pain in both feet COMPARISON: No relevant comparison available. FINDINGS: RIGHT FINDINGS: BONES: Mild bunion formation. Slight widening of the interspace between the base of the first and second metatarsals. No fracture or dislocation. Flattening of the plantar arch. Small calcaneal plantar spur. SOFT TISSUES: No visible soft tissue swelling. OTHER: Negative. LEFT FINDINGS: BONES: Prior mechanical fusion of the talocalcaneal and talonavicular joints without evidence of hardware fracture or loosening. Mild degenerative changes the first metatarsophalangeal joint and suspect slight widening of the first-second metatarsal interspace. Slight flattening of the plantar arch. SOFT TISSUES: No visible soft tissue swelling. OTHER: Negative. IMPRESSION: RIGHT CONCLUSION: 1. No acute bone abnormality. Degenerative changes as detailed above. LEFT CONCLUSION: 1. Mechanical fusion without evidence of hardware failure. 2. Degenerative changes as detailed above. Electronically authenticated by: MELA HERNANDEZ Date: 2022-02-09 06:52 Normal [facility] MG MAMM DX 3D LT CADon 12-17 MG MAMM DX 3D LT CAD Patient: MAXIMINO RODRIGUEZ Exam Date: 12/17/2021 : 1945 Gender:F Ordering : DR ANA CARTER DSharri Admission #: [id number] Family : Order #: [id number] CLICK HERE TO VIEW EXAM RADIOLOGY REPORT PROCEDURE: MAMMOGRAM DIAGNOSTIC 3D LEFT CAD COMPARISON: MG MAMM SCR LT UNI W CAD, 12/17/2019. MG MAMM SCREEN LT 3D CAD, 12/17/2020. INDICATIONS: Family history of malignant neoplasm of breast Calculator Name NCI Breast Cancer Risk Assessment Tool 5 Year Breast Cancer Risk n/a% Lifetime Breast Cancer Risk n/a% Personal Breast Cancer Yes, BREAST CA RT BREAST AGE61 Personal Ovarian Cancer No Treatments RT BREAST MASECTOMY WITH CHEMO AND RADIATION Family Cancers Brother with colon cancer at age 87; Brother with lung cancer at age 80; Brother with bladder cancer at age 81. LOCATION: [facility] BREAST COMPOSITION: Scattered areas fibroglandular density. FINDINGS: DIAGNOSTIC CATEGORY 2--BENIGN FINDING. NO CHANGE FROM COMPARISON. RIGHT BREAST: Not imaged, prior mastectomy. LEFT BREAST: No significant suspicious finding. Stable micro clip marker. Scattered benign-appearing calcifications are present. Scattered benign-appearing lymph nodes are present. RECOMMENDATIONS: ROUTINE MAMMOGRAM AND CLINICAL EVALUATION IN 12 MONTHS. PLEASE NOTE: A NORMAL MAMMOGRAM DOES NOT EXCLUDE THE POSSIBILITY OF BREAST CANCER. A CLINICALLY SUSPICIOUS PALPABLE LUMP SHOULD BE BIOPSIED. Dictated by: Deidre Duarte MD on 12/17/2021 at 11:04 Approved by: Deidre Duarte MD on 12/17/2021 at 11:07 Normal [facility] CBC AUTO DIFFon 11-18-2021 BASO # 0.0 103/ul Normal 0.0-0.[address] [facility] Comment on above: Performed By: #### C BC #### [facility] [address] [address] [address] Arsalan Kapoor Basophils/100 WBC (Bld) 0.3 % Normal 0.2-2.[address] [facility] Comment on above: Performed By: #### C BC #### [facility] [address] [place] [address] Dr. Arsalan Kapoor EO # 0.1 103/ul Normal 0.0-0.[address] [facility] Comment on above: Performed By: #### C BC #### [facility] [address] [place] [address] Dr. Arsalan Kapoor Eosinophils/100 WBC (Bld) 1.2 % Normal 0.9-7.[address] [facility] Comment on above: Performed By: #### C BC #### [facility] [address] [place] [address] Dr. Arsalan Kapoor Erythrocyte distribution width (RBC) [Ratio] 14.0 % Normal 11.0-15.[address] [facility] Comment on above: Performed By: #### C BC #### [facility] [address] [place] [address] Dr. Arsalan Kapoor Hematocrit (Bld) [Volume fraction] 37.6 % Normal 36.0-48.[address] [facility] Comment on above: Performed By: #### C BC #### [facility] [address] [place] [address] Dr. Arsalan Kapoor Hemoglobin (Bld) [Mass/Vol] 13.1 g/dL Normal 12.0-16.[address] [facility] Comment on above: Performed By: #### C BC #### [facility] [address] [place] [address] Dr. Arsalan Kapoor IG # 0.03 10e3/ul Normal 0.00-0.[address] [facility] Comment on above: Performed By: #### C BC #### [facility] [address] [place] [address] Dr. Arsalan Kapoor IG % 0.5 % Normal 0.0-0.[address] [facility] Comment on above: Performed By: #### C BC #### [facility] [address] [place] [address] Dr. Arsalan Kapoor LYMPH # 1.7 103/ul Normal 1.2-3.[address] [facility] Comment on above: Performed By: #### C BC #### [facility] [address] [place] [address] Dr. Arsalan Kapoor Lymphocytes/100 WBC (Bld) 25.8 % Normal 20.5-60.[address] [facility] Comment on above: Performed By: #### C BC #### [facility] [address] [place] [address] Dr. Arsalan Kapoor MANUAL DIFF REQ NO Normal [facility] Comment on above: Performed By: #### C BC #### [facility] [address] [place] [address] Dr. Arsalan Kapoor MCH (RBC) [Entitic mass] 35.4 pg Critically high 26.7-34.[address] [facility] Comment on above: Performed By: #### C BC #### [facility] [address] [place] [address] Dr. Arsalan Kapoor MCHC (RBC) [Mass/Vol] 34.8 g/dL Normal 29.9-35.[address] [facility] Comment on above: Performed By: #### C BC #### [facility] [address] [place] [address] Dr. Arsalan Kapoor MCV (RBC) [Entitic vol] 101.6 fL Critically high 81.0-99.[address] [facility] Comment on above: Performed By: #### C BC #### [facility] [address] [place] [address] Dr. Arsalan Kapoor MONO # 0.4 103/ul Normal 0.3-0.[address] [facility] Comment on above: Performed By: #### C BC #### [facility] [address] [place] [address] Dr. Arsalan Kapoor Monocytes/100 WBC (Bld) 6.4 % Normal 1.7-12.0 [facility] Comment on above: Performed By: #### C BC #### [facility] [address] [place] [address] Dr. Arsalan Kapoor NEUT # 4.3 103/ul Normal 1.4-6.5 [facility] Comment on above: Performed By: #### C BC #### [facility] [address] [address] [address] Arsalan Kapoor Neutrophils/100 WBC (Bld) 65.8 % Normal 43.0-75.[address] [facility] Comment on above: Performed By: #### C BC #### [facility] [address] [address] [address] Arsalan Kapoor Platelet mean volume (Bld) [Entitic vol] 10.1 fL Normal 9.5-13.[address] [facility] Comment on above: Performed By: #### C BC #### [facility] [address] [address] [address] Arsalan Kapoor PLT 255 103/ul Normal 150-[address] [facility] Comment on above: Performed By: #### C BC #### [facility] [address] [address] [address] Arsalan Kapoor RBC 3.70 106/ul Critically low 4.20-5.40 [facility] Comment on above: Performed By: #### C BC #### [facility] [address] [address] [address] Arsalan Kapoor WBC 6.6 103/ul Normal 4.0-11.[address] [facility] Comment on above: Performed By: #### C BC #### [facility] [address] [address] [address] Arsalan Kapoor PROF 14(COMP METB)on 022 Albumin [Mass/Vol] 3.7 g/dL Normal 3.5-5.0 [facility] Comment on above: Performed By: #### C MP, T4, TSH #### [facility] [address] [address] [address] Arsalan Kapoor Albumin/Globulin [Mass ratio] 0.9 {ratio} Normal [facility] Comment on above: Performed By: #### C MP, T4, TSH #### [facility] [address] [address] [address] Arsalan Kapoor ALP [Catalytic activity/Vol] 80 U/L Normal 38-[address] [facility] Comment on above: Performed By: #### C MP, T4, TSH #### [facility] [address] [address] [address] Arsalan Kapoor ALT [Catalytic activity/Vol] 9 U/L Normal 9-[address] [facility] Comment on above: Performed By: #### C MP, T4, TSH #### [facility] [address] [address] [address] Arsalan Kapoor Anion gap [Moles/Vol] 11.8 mmol/L Normal [facility] Comment on above: Performed By: #### C MP, T4, TSH #### [facility] [address] [address] [address] Arsalan Kapoor AST [Catalytic activity/Vol] 4 U/L Critically low 14-[address] [facility] Comment on above: Performed By: #### C MP, T4, TSH #### [facility] [address] [place] [address] Dr. Arsalan Kapoor Bilirubin [Mass/Vol] 0.7 mg/dL Normal 0.2-1.[address] [facility] Comment on above: Performed By: #### C MP, T4, TSH #### [facility] [address] [place] [address] Dr. Arsalan Kapoor Calcium [Mass/Vol] 9.0 mg/dL Normal 8.4-10.2 [facility] Comment on above: Performed By: #### C MP, T4, TSH #### [facility] [address] [place] [address] Dr. Arsalan Kapoor Chloride [Moles/Vol] 107 mmol/L Normal 98-107 [facility] Comment on above: Performed By: #### C MP, T4, TSH #### [facility] [address] [place] [address] Dr. Arsalan Kapoor CO2 [Moles/Vol] 25.6 mmol/L Normal 22.0-30.0 [facility] Comment on above: Performed By: #### C MP, T4, TSH #### [facility] [address] [place] [address] Dr. Arsalan Kapoor Creatinine [Mass/Vol] 0.87 mg/dL Normal 0.52-1.[address] [facility] Comment on above: Performed By: #### C MP, T4, TSH #### [facility] [address] [place] [address] Dr. Arsalan Kapoor EGFR-AF GUINEAN >60 Normal >=60 [facility] Comment on above: Performed By: #### C MP, T4, TSH #### [facility] [address] [address] [address] Arsalan Kapoor EGFR-NON AF GUINEAN >60 Normal >=[address] [facility] Comment on above: Performed By: #### C MP, T4, TSH #### [facility] [address] [place] [address] Dr. Arsalan Kapoor Globulin (S) [Mass/Vol] 4.0 g/dL Normal [facility] Comment on above: Performed By: #### C MP, T4, TSH #### [facility] [address] [place] [address] Dr. Arsalan Kapoor Glucose [Mass/Vol] 99 mg/dL Normal 74-106 [facility] Comment on above: Performed By: #### C MP, T4, TSH #### [facility] [address] [place] [address] Dr. Arsalan Kapoor Potassium [Moles/Vol] 4.4 mmol/L Normal 3.4-5.[address] [facility] Comment on above: Performed By: #### C MP, T4, TSH #### [facility] [address] [place] [address] Dr. Arsalan Kapoor Protein [Mass/Vol] 7.7 g/dL Normal 6.1-8.[address] [facility] Comment on above: Performed By: #### C MP, T4, TSH #### [facility] [address] [place] [address] Dr. Arsalan Kapoor Sodium [Moles/Vol] 140 mmol/L Normal 137-145 [facility] Comment on above: Performed By: #### C MP, T4, TSH #### [facility] [address] [place] [address] Dr. Arsalan Kapoor Urea nitrogen [Mass/Vol] 27.0 mg/dL Critically high 7.0-17.[address] [facility] Comment on above: Performed By: #### C MP, T4, TSH #### [facility] [address] [address] [address] Arsalan Kapoor Urea nitrogen/Creatinin e [Mass ratio] 31.0 mg/mg Normal [facility] Comment on above: Performed By: #### C MP, T4, TSH #### [facility] [address] [place] [address] Dr. Arsalan Kapoor T4on 11-18-2021 T4 [Mass/Vol] 3.70 ug/dL Critically low 5.53-11.[address] [facility] Comment on above: Performed By: #### C MP, T4, TSH #### [facility] [address] [place] [address] Dr. Arsalan Kapoor TSHon 11-18-2021 TSH 16.174 uIU/mL Critically high 0.470-4.680 [facility] Comment on above: Performed By: #### C MP, T4, TSH #### [facility] [address] [place] [address] Dr. Arsalan Kapoor TSH RANGE SEE BELOW Normal [facility] Comment on above: Result Comment: <0.3 4 UIU/ml HYPERTHYROID 0.34-5.60 UIU/ml EUTHYROID >5.60 UIU/ml HYPOTHYROID Performed By: #### C MP, T4, TSH #### [facility] [address] [place] [address] Dr. Arsalan Kapoor CULTURE URINEon 09-09-2021 CULTURE URINE Culture Observations : HEAVY GROWTH OF MIXED GENITAL ORAL. NO POTENTIAL PATHOGENS SEEN. Normal [facility] Comment on above: Performed By: #### U RCX #### [facility] [address] [place] [address] Dr. Arsalan Kapoor ER URINE PROFILEon Bilirubin Ql (U) Negative Normal NEGATIVE [facility] Comment on above: Performed By: #### U MICRO, ERUR #### [facility] [address] [place] [address] Dr. Arsalan Kapoor Clarity (U) SL CLOUDY Abnormal CLEAR [facility] Comment on above: Performed By: #### U MICRO, ERUR #### [facility] [address] [place] [address] Dr. Arsalan Kapoor Color (U) YELLOW Normal YELLOW [facility] Comment on above: Performed By: #### U MICRO, ERUR #### [facility] [address] [address] [address] Arsalan Kapoor ERUAHD A micrscopic examina tion will be performed if indicated. Normal [facility] Comment on above: Performed By: #### U MICRO, ERUR #### [facility] [address] [place] [address] Dr. Arsalan Kapoor Glucose Ql (U) Negative Normal NEGATIVE [facility] Comment on above: Performed By: #### U MICRO, ERUR #### [facility] [address] [place] [address] Dr. Arsalan Kapoor Hemoglobin Ql (U) MODERATE Abnormal NEGATIVE [facility] Comment on above: Performed By: #### U MICRO, ERUR #### [facility] [address] [place] [address] Dr. Arsalan Kapoor Ketones Ql (U) Negative Normal NEGATIVE [facility] Comment on above: Performed By: #### U MICRO, ERUR #### [facility] [address] [place] [address] Dr. Arsalan Kapoor LEUKOCYTES Negative Normal NEGATIVE [facility] Comment on above: Performed By: #### U MICRO, ERUR #### [facility] [address] [address] [address] Arsalan Kapoor Nitrite Ql (U) Negative Normal NEGATIVE [facility] Comment on above: Performed By: #### U MICRO, ERUR #### [facility] [address] [place] [address] Dr. Arsalan Kapoor pH (U) 5.0 [pH] Normal 5-9 [facility] Comment on above: Performed By: #### U MICRO, ERUR #### [facility] [address] [place], [place] [id number] Dr. Arsalan Kapoor SPEC GRAVITY 1.030 Abnormal 1.005-<=1.025 [facility] Comment on above: Performed By: #### U MICRO, ERUR #### [facility] [address] [place] [address] Dr. Arsalan Kapoor UA PROTEIN Negative Normal NEGATIVE/ TRACE [facility] Comment on above: Performed By: #### U MICRO, ERUR #### [facility] [address] [place] [address] Dr. Arsalan Kapoor UR MICRO IND INDICATED Normal [facility] Comment on above: Performed By: #### U MICRO, ERUR #### [facility] [address] [place] [address] Dr. Arsalan Kapoor Urobilinogen Qn (U) 0.2 {Gallo'U}/dL Normal 0.2 - 1.[address] [facility] Comment on above: Performed By: #### U MICRO, ERUR #### [facility] [address] [place] [address] Dr. Arsalan Kapoor URINE MICROSCOPIC ONLYon BACTERIA MODERATE Abnormal NONE SEEN [facility] Comment on above: Performed By: #### U MICRO, ERUR #### [facility] [address] [place] [address] Dr. Arsalan Kapoor Bacteria identified Cx Nom (U) INDICATED Normal [facility] Comment on above: Performed By: #### U MICRO, ERUR #### [facility] [address] [place] [address] Dr. Arsalan Kapoor CAST NONE SEEN Normal NONE SEEN [facility] Comment on above: Performed By: #### U MICRO, ERUR #### [facility] [address] [place] [address] Dr. Arsalan Kapoor Crystals LM Nom (Urine sed) NONE SEEN Normal NONE SEEN [facility] Comment on above: Performed By: #### U MICRO, ERUR #### [facility] [address] [place] [address] Dr. Arsalan Kapoor Epithelial cells LM Ql (Urine sed) MODERATE Abnormal NONE SEEN /RARE [facility] Comment on above: Performed By: #### U MICRO, ERUR #### [facility] [address] [address] [address] Arsalan Kapoor MUCOUS TRACE Abnormal NONE SEEN [facility] Comment on above: Performed By: #### U MICRO, ERUR #### [facility] [address] [address] [address] Arsalan Kapoor RBC 0-2 Normal 0-2 [facility] Comment on above: Performed By: #### U MICRO, ERUR #### [facility] [address] [address] [address] Arsalan Kapoor WBC NONE SEEN Normal NONE SEEN [facility] Comment on above: Performed By: #### U MICRO, ERUR #### [facility] [address] [address] [address] Arsalan Kapoor XR ABD FLAT UP_PA Tunde 09-09 XR ABD FLAT UP_PA CH EXAM: XR ABD FLAT UP_PA CH HISTORY: UNSPECIFIED ABDOMINAL PAIN lower pelvic pain, constipation, nausea COMPARISON: None. TECHNIQUE: 4 frontal views abdominal acute series with chest and abdomen FINDINGS: No lobar consolidation, large effusions, pneumothorax, or acute bony abnormality. Cardiac size unremarkable. Prior cholecystectomy. Moderate amount stool throughout the large bowel to the rectum. No gaseous distention of the small bowel. No large free air. Chronic arthritic changes of the visualized skeleton. IMPRESSION: Moderate amount stool throughout the large bowel to the rectum. No radiographic evidence for acute chest abnormality. Electronically authenticated by: SHAD PFEIFFER Date: 2021-09-09 05:54 Normal [facility] CT BRAIN WOon 07-29-2019 CT BRAIN WO EXAMINATION: CT BRAI N WO HISTORY: Confusion, headache. COMPARISON: None. TECHNIQUE: CT examination of the head without IV contrast. Dose reduction techniques were achieved by using automated exposure control and/or adjustment of mA and/or kV according to patient size and/or use of iterative reconstruction technique. FINDINGS: No acute intracranial hemorrhage, mass effect, or midline shift. No loss of izaguirre/white matter differentiation to suggest acute territorial infarction. The ventricles are nondilated. Cortical sulci are unremarkable. Mild chronic microvascular ischemic changes are noted. No intra-axial or extra-axial fluid collections are present. The calvarium is intact. The visualized paranasal sinuses and mastoid air cells are clear. The patient is status post bilateral lens surgery. IMPRESSION: No acute intracranial hemorrhage or mass effect. Mild chronic microvascular ischemic changes. Further evaluation with follow-up MRI brain may be advisable as clinically indicated. Report electronically signed by: Dr. Adi Kapoor [facility] Urinalysis Dipstickon 2018 Leukocyte esterase Test strip Ql (U) Negative Normal NEGATIVE [facility] Comment on above: Performed By: #### U RINALYSIS, DIP #### [facility] [address] [place] [address] Nitrite Ql (U) Negative Normal NEGATIVE [facility] Comment on above: Performed By: #### U RINALYSIS, DIP #### [facility] [address] [place] [address] Protein (U) [Mass/Vol] Negative Normal NEGATIVE [facility] Comment on above: Performed By: #### U RINALYSIS, DIP #### [facility] [address] [place] [address] Urobilinogen, Dipstick 0.2 Normal 0.2 - 1.0 [facility] Comment on above: Performed By: #### U RINALYSIS, DIP #### [facility] [address] [place] [address] pH (U) 5.0 [pH] Normal 5.0 - 9.0 [facility] Comment on above: Performed By: #### U RINALYSIS, DIP #### [facility] [address] [place] [address] Blood, Dipstick Negative Normal NEGATIVE [facility] Comment on above: Performed By: #### U RINALYSIS, DIP #### [facility] [address] [place] [address] Specific gravity (U) [Rel density] 1.010 Normal 1.005 - 1.030 [facility] Comment on above: Performed By: #### U RINALYSIS, DIP #### [facility] [address] [place] [address] Ketone, Dipstick TRACE Abnormal NEGATIVE [facility] Comment on above: Performed By: #### U RINALYSIS, DIP #### [facility] [address] [place] [address] Bilirubin, Dipstick Negative Normal NEGATIVE [facility] Comment on above: Performed By: #### U RINALYSIS, DIP #### [facility] [address] [place] [address] Glucose, Dipstick Negative Normal NEGATIVE [facility] Comment on above: Performed By: #### U RINALYSIS, DIP #### [facility] [address] [place] [address] Character (U) CLEAR Normal CLEAR [facility] Comment on above: Performed By: #### U RINALYSIS, DIP #### [facility] [address] [place] [address] Color (U) YELLOW [facility] Comment on above: Performed By: #### U RINALYSIS, DIP #### [facility] [address] [place] [address] Age at specimen collection = Normal [facility] Comment on above: Performed By: #### U RINALYSIS, DIP #### [facility] [address] [place] [address] Encounters Encounter Date Encounter Type Care Provider Facility Start: 09-19-2023 End: 09-20-2023 ambulatory Cr Howard MD Facility:[facility] Start: 03-29-2022 ambulatory TERRI AQUINO Faci lity:[facility] Start: 03-08-2022 End: 03-09-2022 ambulatory TERRI AQUINO Facility:[facility] Start: 02-08-2022 End: 02-09-2022 ambulatory TERRI AQUINO Facility:[facility] Start: 12-17-2021 End: 12-18-[address] ANA CARTER Facility:[facility] Start: 11-18-2021 End: 11-19-[address] ANA CARTER Facility:[facility] Start: 09-09-2021 End: 09-09-[address] ISIDRO WARE Facility:[facility] Payers Date Payer Category Payer Medicare [id number] 1960 Unknown [id number] 1960 Unknown [id number] 1945 Unknown [id number] 2.16.84 [id number] 1945 Unknown [id number] 2.16.84 [id number] 1944 Unknown [id number] 2.16.84 [id number] 1944 Unknown [id number] 2.16.84 [id number] 1944 Unknown [id number] 2.16.84 [id number] 1944 Unknown [id number] 2.16.84 [id number] 1944 Unknown [id number] 2.16.8 [id number] Summary Purpose Family History No Family History Records FoundNo Family History Records FoundNo Family History Records Found Advance Directives No Advanced Directives Records FoundNo Advanced Directives Records FoundNo Advanced Directives Records Found Additional Source Comments INFORMATION SOURCE (unrecogn ized section and content) DATE CREATED AUTHOR 08/10/2019 [facility] DATE CREATED AUTHOR AUTHOR'S ORGANIZ ATION 04/02/2022 [facility] DATE CREATED AUTHOR AUTHOR'S ORGANIZ ATION 10/20/2023 [facility] FOR RECORDS PERTAINING TO PATIENTS WHO ARE OR HAVE BEEN ENROLLED IN A CHEMICAL DEPENDENCY/SUBSTANCEABUSE PROGRAM, SOME INFORMATION MAY BE OMITTED. This clinical summary was aggregated from multiple sources. Caution should be exercised in using it in the provision of clinical care. This summary normalizes information from multiple sources, and as a consequence, information in this document may materially change the coding, format and clinical context of patient data. In addition, data may be omitted in some cases. CLINICAL DECISIONS SHOULD BE BASED ON THE PRIMARY CLINICAL RECORDS. [facility] provides no warranty or guarantee of the accuracy or completeness of information in this document.
== END 2023-10-26 13:29 | disposition home or self-care (01) ==
LOC: RAD 13:28
PROVIDERS: PCP Family Medicine; Visit Provider Podiatrist Foot & Ankle Surgery
DX: S82.401D Unspecified fracture of shaft of right fibula, subsequent encounter for closed fracture with routine healing (principal)
CPT/HCPCS: 73610

== ENCOUNTER 2023-11-15 13:05 | Emergency (ER) | payer MEDICARE, OTHER, SELFPAY ==
[2023-11-15 13:09] VITALS: BP 202/91; PULSE 100; RESP 20; TEMP 36.3; O2SAT 98; BMI 40.4
--- OUTSIDE RECORDS SUMMARY | 2023-11-15 13:25 | XMS_ITS | CCD ---
Author Name Unknown Address [address] [place] [address] Organization [facility] Care Team Providers Care Zipper Joiner Name Role Phone MILES, TERRI Hameed Attending Unavailable HOUSE, DR PEREZ Primary Care Unavailable HIGHLANDER, ETRRI Hameed Admitting Unavailable HOUSE, DR PEREZ Attending Unavailable HOUSE, DR PEREZ Consulting Unavailable HOUSE, DR PEREZ Primary Care Unavailable HOUSE, DR PEREZ Admitting Unavailable HOUSE, DR PEREZ Admitting Unavailable [place], DR DEIDRE Lowe Consulting Unavailable HOUSE, DR PEREZ Attending Unavailable HOUSE, DR PEREZ Primary Care Unavailable HOUSE, DR PEREZ Consulting Unavailable PAY, DR ISIDRO [place] Unavailable HOUSE, DR PEREZ Primary Care Unavailable [...] Test Name Value Interpretation Reference Range Facility Provider [place] 11-14-2023 Provider Orders [id number]#1.00OTG TIFF [facility] Outside Recordson 10-19-2023 Outside Records [id number]#1.00OTG TIFF [facility] Outside Recordson 10-13-2023 Outside Records [id number]#1.00OT [facility] Outside Records [id number]#1.00OT [facility] Provider [place] 10-13-2023 Provider Orders [id number]#1.00O [facility] Outside Recordson 09-28-2023 Outside Records [id number]#1.00O [facility] Patient Provided Health Data on 09-20-2023 Patient Provided Health Data [id number]#1.00OT [facility] Provider [place] 09-20-2023 Provider Orders [id number][facility] Rad - Other Radiology Report on 09-20-2023 Rad - Other Radiology Report [id number]#1.OT [facility] Patient Handouton 09-19-2023 Patient Handout [id number]#1.OT [facility] XR FOOT CAM MIN 3 VIEWSon XR [...] MELA HERNANDEZ Date: 2022-02-09 06:52 Normal [facility] MG MAMM DX 3D LT CADon 12-17 MG MAMM DX 3D LT CAD Patient: MAXIMINO RODRIGUEZ Exam Date: 12/17/2021 : 1945 Gender:F Ordering : DR ANA CARTER D.O. Admission #: [id number] Family : Order #: [id number] CLICK HERE TO VIEW EXAM RADIOLOGY REPORT [...] bladder cancer at age 80. LOCATION: [facility] BREAST COMPOSITION: Scattered areas fibroglandular density. [...] MD on 12/17/2021 at 11:07 Normal [facility] CBC AUTO DIFFon 11-18-2021 BASO # 0.0 103/ul Normal 0.0-0.1 [facility] Comment on above: Performed By: #### C BC #### [facility] [address] [address] [address] Arsalan Kapoor Basophils/100 WBC (Bld) 0.3 % Normal 0.2-2.0 [facility] Comment on above: Performed By: #### C BC #### [facility] [address] [address] [address] Arsalan Kapoor EO # 0.1 103/ul Normal 0.0-0.7 [facility] Comment on above: Performed By: #### C BC #### [facility] [address] [place] [address] Dr. Asralan Kapoor Eosinophils/100 WBC (Bld) 1.2 % Normal 0.9-7.0 [facility] Comment on above: Performed By: #### C BC #### [facility] [address] [place] [address] Dr. Arsalan Kapoor Erythrocyte distribution width (RBC) [Ratio] 14.0 % Normal 11.0-15.0 [facility] Comment on above: Performed By: #### C BC #### [facility] [address] [place] [address] Dr. Arsalan Kapoor Hematocrit (Bld) [Volume fraction] 37.6 % Normal 36.0-48.0 [facility] Comment on above: Performed By: #### C BC #### [facility] [address] [place] [address] Dr. Arsalan Kapoor Hemoglobin (Bld) [Mass/Vol] 13.1 g/dL Normal 12.0-16.0 [facility] Comment on above: Performed By: #### C BC #### [facility] [address] [place] [address] Dr. Arsalan Kapoor IG # 0.03 10e3/ul Normal 0.00-0.03 [facility] Comment on above: Performed By: #### C BC #### [facility] [address] [place] [address] Dr. Arsalan Kapoor IG % 0.5 % Normal 0.0-0.5 [facility] Comment on above: Performed By: #### C BC #### [facility] [address] [place] [address] Dr. Arsalan Kapoor LYMPH # 1.7 103/ul Normal 1.2-3.8 [facility] Comment on above: Performed By: #### C BC #### [facility] [address] [place] [address] Dr. Arsalan Kapoor Lymphocytes/100 WBC (Bld) 25.8 % Normal 20.5-60.0 [facility] Comment on above: Performed By: #### C BC #### [facility] [address] [place] [address] Dr. Arsalan Kaporo MANUAL DIFF REQ NO Normal [facility] Comment on above: Performed By: #### C BC #### [facility] [address] [place] [address] Dr. Arsalan Kapoor MCH (RBC) [Entitic mass] 35.4 pg Critically high 26.7-34.0 [facility] Comment on above: Performed By: #### C BC #### [facility] [address] [place] [address] Dr. Arsalan Kapoor MCHC (RBC) [Mass/Vol] 34.8 g/dL Normal 29.9-35.2 [facility] Comment on above: Performed By: #### C BC #### [facility] [address] [place] [address] Dr. Arsalan Kapoor MCV (RBC) [Entitic vol] 101.6 fL Critically high 81.0-99.0 [facility] Comment on above: Performed By: #### C BC #### [facility] [address] [place] [address] Dr. Arsalan Kapoor MONO # 0.4 103/ul Normal 0.3-0.8 [facility] Comment on above: Performed By: #### C BC #### [facility] [address] [place] [address] Dr. Arsalan Kapoor Monocytes/100 WBC (Bld) 6.4 % Normal 1.7-12.0 [facility] Comment on above: Performed By: #### C BC #### [facility] [address] [place] [address] Dr. Arsalan Kapoor NEUT # 4.3 103/ul Normal 1.4-6.5 [facility] Comment on above: Performed By: #### C BC #### [facility] [address] [address] [address] Arsalan Kapoor Neutrophils/100 WBC (Bld) 65.8 % Normal 43.0-75.0 [facility] Comment on above: Performed By: #### C BC #### [facility] [address] [place] [address] Dr. Arsalan Kapoor Platelet mean volume (Bld) [Entitic vol] 10.1 fL Normal 9.5-13.5 [facility] Comment on above: Performed By: #### C BC #### [facility] [address] [place] [address] Dr. Arsalan Kapoor PLT 255 103/ul Normal 150-450 [facility] Comment on above: Performed By: #### C BC #### [facility] [address] [place] [address] Dr. Arsalan Kapoor RBC 3.70 106/ul Critically low 4.20-5.40 [facility] Comment on above: Performed By: #### C BC #### [facility] [address] [place] [address] Dr. Arsalan Kapoor WBC 6.6 103/ul Normal 4.0-11.0 [facility] Comment on above: Performed By: #### C BC #### [facility] [address] [place] [address] Dr. Arsalan Kapoor PROF 14(COMP METB)on 022 Albumin [Mass/Vol] 3.7 g/dL Normal 3.5-5.0 [facility] Comment on above: Performed By: #### C MP, T4, TSH #### [facility] [address] [place] [address] Dr. Arsalan Kapoor Albumin/Globulin [Mass ratio] 0.9 {ratio} Normal [facility] Comment on above: Performed By: #### C MP, T4, TSH #### [facility] [address] [address] [address] Arsalan Kapoor ALP [Catalytic activity/Vol] 80 U/L Normal 38-126 [facility] Comment on above: Performed By: #### C MP, T4, TSH #### [facility] [address] [address] [address] Arsalan Kapoor ALT [Catalytic activity/Vol] 9 U/L Normal 9-52 [facility] Comment on above: Performed By: #### C MP, T4, TSH #### [facility] [address] [address] [address] Arsalan Kapoor Anion gap [Moles/Vol] 11.8 mmol/L Normal [facility] Comment on above: Performed By: #### C MP, T4, TSH #### [facility] [address] [address] [address] Arsalan Kapoor AST [Catalytic activity/Vol] 4 U/L Critically low 14-36 [facility] Comment on above: Performed By: #### C MP, T4, TSH #### [facility] [address] [address] [address] Arsalan Kapoor Bilirubin [Mass/Vol] 0.7 mg/dL Normal 0.2-1.3 [facility] Comment on above: Performed By: #### C MP, T4, TSH #### [facility] [address] [address] [address] Arsalan Kapoor Calcium [Mass/Vol] 9.0 mg/dL Normal 8.4-10.2 [facility] Comment on above: Performed By: #### C MP, T4, TSH #### [facility] [address] [address] [address] Arsalan Kapoor Chloride [Moles/Vol] 107 mmol/L Normal 98-107 [facility] Comment on above: Performed By: #### C MP, T4, TSH #### [facility] [address] [address] [address] Arsalan Kapoor CO2 [Moles/Vol] 25.6 mmol/L Normal 22.0-30.0 [facility] Comment on above: Performed By: #### C MP, T4, TSH #### [facility] [address] [address] [address] Arsalan Kapoor Creatinine [Mass/Vol] 0.87 mg/dL Normal 0.52-1.04 [facility] Comment on above: Performed By: #### C MP, T4, TSH #### [facility] [address] [address] [address] Arsalan Kapoor EGFR-AF VENEZUELAN >60 Normal >=60 [facility] Comment on above: Performed By: #### C MP, T4, TSH #### [facility] [address] [address] [address] Arsalan Kapoor EGFR-NON AF VENEZUELAN >60 Normal >=60 [facility] Comment on above: Performed By: #### C MP, T4, TSH #### [facility] [address] [address] [address] Arsalan Kapoor Globulin (S) [Mass/Vol] 4.0 g/dL Normal [facility] Comment on above: Performed By: #### C MP, T4, TSH #### [facility] [address] [address] [address] Arsalan Kapoor Glucose [Mass/Vol] 99 mg/dL Normal 74-106 [facility] Comment on above: Performed By: #### C MP, T4, TSH #### [facility] [address] [address] [address] Arsalan Kapoor Potassium [Moles/Vol] 4.4 mmol/L Normal 3.4-5.0 [facility] Comment on above: Performed By: #### C MP, T4, TSH #### [facility] [address] [address] [address] Arsalan Kapoor Protein [Mass/Vol] 7.7 g/dL Normal 6.1-8.2 [facility] Comment on above: Performed By: #### C MP, T4, TSH #### [facility] [address] [address] [address] Arsalan Kapoor Sodium [Moles/Vol] 140 mmol/L Normal 137-145 [facility] Comment on above: Performed By: #### C MP, T4, TSH #### [facility] [address] [address] [address] Arsalan Kapoor Urea nitrogen [Mass/Vol] 27.0 mg/dL Critically high 7.0-17.0 [facility] Comment on above: Performed By: #### C MP, T4, TSH #### [facility] [address] [address] [address] Arsalan Kapoor Urea nitrogen/Creatinin e [Mass ratio] 31.0 mg/mg Normal [facility] Comment on above: Performed By: #### C MP, T4, TSH #### [facility] [address] [place] [address] Dr. Arsalan Kapoor T4on 11-18-2021 T4 [Mass/Vol] 3.70 ug/dL Critically low 5.53-11.00 [facility] Comment on above: Performed By: #### C MP, T4, TSH #### [facility] [address] [place] [address] Dr. Arsalan Kapoor TSHon 11-18-2021 TSH 16.174 uIU/mL Critically high 0.470-4.680 [facility] Comment on above: Performed By: #### C MP, T4, TSH #### [facility] [address] [place] [address] Dr. Arsalan Kapoor TSH RANGE SEE BELOW Normal [facility] Comment on above: Result Comment: <0.3 4 UIU/ml HYPERTHYROID 0.34-5.60 UIU/ml EUTHYROID >5.60 UIU/ml HYPOTHYROID Performed By: #### C MP, T4, TSH #### [facility] [address] [place] [address] Dr. Arsalan Kapoor CULTURE URINEon 09-09-2021 CULTURE URINE Culture Observations : HEAVY GROWTH OF MIXED GENITAL ORAL. NO POTENTIAL PATHOGENS SEEN. Normal [facility] Comment on above: Performed By: #### U RCX #### [facility] [address] [place] [address] Dr. Arsalan Kapoor ER URINE PROFILEon 12-08-202 1 Bilirubin Ql (U) Negative Normal NEGATIVE [facility] Comment on above: Performed By: #### U MICRO, ERUR #### [facility] [address] [address] [address] Arsalan Kapoor Clarity (U) SL CLOUDY Abnormal CLEAR [facility] Comment on above: Performed By: #### U MICRO, ERUR #### [facility] [address] [address] [address] Arsalan Kapoor Color (U) YELLOW Normal YELLOW [facility] Comment on above: Performed By: #### U MICRO, ERUR #### [facility] [address] [address] [address] Arsalan Kapoor ERUAHD A micrscopic examina tion will be performed if indicated. Normal [facility] Comment on above: Performed By: #### U MICRO, ERUR #### [facility] [address] [place] [address] Dr. Arsalan Kapoor Glucose Ql (U) Negative Normal NEGATIVE [facility] Comment on above: Performed By: #### U MICRO, ERUR #### [facility] [address] [address] [address] Arsalan Kapoor Hemoglobin Ql (U) MODERATE Abnormal NEGATIVE [facility] Comment on above: Performed By: #### U MICRO, ERUR #### [facility] [address] [place] [address] Dr. Arsalan Kapoor Ketones Ql (U) Negative Normal NEGATIVE [facility] Comment on above: Performed By: #### U MICRO, ERUR #### [facility] [address] [address] [address] Arsalan Kapoor LEUKOCYTES Negative Normal NEGATIVE [facility] Comment on above: Performed By: #### U MICRO, ERUR #### [facility] [address] [address] [address] Arsalan Kapoor Nitrite Ql (U) Negative Normal NEGATIVE [facility] Comment on above: Performed By: #### U MICRO, ERUR #### [facility] [address] [place] [address] Dr. Arsalan Kapoor pH (U) 5.0 [pH] Normal 5-9 [facility] Comment on above: Performed By: #### U MICRO, ERUR #### [facility] [address] [place] [address] Dr. Arsalan Kapoor SPEC GRAVITY 1.030 Abnormal 1.005-<=1.025 [facility] Comment on above: Performed By: #### U MICRO, ERUR #### [facility] [address] [place] [address] Dr. Arsalan Kapoor UA PROTEIN Negative Normal NEGATIVE/ TRACE [facility] Comment on above: Performed By: #### U MICRO, ERUR #### [facility] [address] [place] [address] Dr. Arsalan Kapoor UR MICRO IND INDICATED Normal [facility] Comment on above: Performed By: #### U MICRO, ERUR #### [facility] [address] [place] [address] Dr. Arsalan Kapoor Urobilinogen Qn (U) 0.2 {Gallo'U}/dL Normal 0.2 - 1.0 [facility] Comment on above: Performed By: #### U MICRO, ERUR #### [facility] [address] [place] [address] Dr. Arsalan Kapoor URINE MICROSCOPIC ONLYon BACTERIA MODERATE Abnormal NONE SEEN [facility] Comment on above: Performed By: #### U MICRO, ERUR #### [facility] [address] [place] [address] Dr. Arsalan Kapoor Bacteria identified Cx Nom (U) INDICATED Normal [facility] Comment on above: Performed By: #### U MICRO, ERUR #### [facility] [address] [place] [address] Dr. Arsalan Kapoor CAST NONE SEEN Normal NONE SEEN [facility] Comment on above: Performed By: #### U MICRO, ERUR #### [facility] [address] [place] [address] Dr. Arsalan Kapoor Crystals LM Nom (Urine sed) NONE SEEN Normal NONE SEEN [facility] Comment on above: Performed By: #### U MICRO, ERUR #### [facility] [address] [address] [address] Arsalan Kapoor Epithelial cells LM Ql (Urine sed) MODERATE Abnormal NONE SEEN /RARE [facility] Comment on above: Performed By: #### U MICRO, ERUR #### [facility] [address] [address] [address] Arsalan Kapoor MUCOUS TRACE Abnormal NONE SEEN [facility] Comment on above: Performed By: #### U MICRO, ERUR #### [facility] [address] [address] [address] Arsalan Kapoor RBC 0-2 Normal 0-2 [facility] Comment on above: Performed By: #### U MICRO, ERUR #### [facility] [address] [place] [address] Dr. Arsalan Kapoor WBC NONE SEEN Normal NONE SEEN [facility] Comment on above: Performed By: #### U MICRO, ERUR #### [facility] [address] [place] [address] Dr. Arsalan Kapoor XR ABD FLAT UP_PA [...] SHAD PFEIFFER Date: 2021-09-09 05:54 Normal [facility] CT BRAIN WOon 07-29-2019 CT BRAIN [...] electronically signed by: Dr. Adi Kapoor Normal [facility] Urinalysis Dipstickon 2018 Leukocyte esterase Test strip Ql (U) Negative Normal NEGATIVE [facility] Comment on above: Performed By: #### U RINALYSIS, DIP #### [address] [place] [address] Nitrite Ql (U) Negative Normal NEGATIVE [facility] Comment on above: Performed By: #### U RINALYSIS, DIP #### [address] [address] Protein (U) [Mass/Vol] Negative Normal NEGATIVE [facility] Comment on above: Performed By: #### U RINALYSIS, DIP #### [address] [place] [address] Urobilinogen, Dipstick 0.2 Normal 0.2 - 1.0 [facility] Comment on above: Performed By: #### U RINALYSIS, DIP #### [address] [place] [address] pH (U) 5.0 [pH] Normal 5.0 - 9.0 [facility] Comment on above: Performed By: #### U RINALYSIS, DIP #### [address] [place] [address] Blood, Dipstick Negative Normal NEGATIVE [facility] Comment on above: Performed By: #### U RINALYSIS, DIP #### [facility] [address] [place] [address] Specific gravity (U) [Rel density] 1.010 Normal 1.005 - 1.030 [facility] Comment on above: Performed By: #### U RINALYSIS, DIP #### [facility] [address] [place] [address] Ketone, Dipstick TRACE Abnormal NEGATIVE [facility] Comment on above: Performed By: #### U RINALYSIS, DIP #### [facility] [address] [place] [address] Bilirubin, Dipstick Negative Normal NEGATIVE [facility] Comment on above: Performed By: #### U RINALYSIS, DIP #### [facility] [address] [place] [address] Glucose, Dipstick Negative Normal NEGATIVE [facility] Comment on above: Performed By: #### U RINALYSIS, DIP #### [facility] [address] [place] [address] Character (U) CLEAR Normal CLEAR [facility] Comment on above: Performed By: #### U RINALYSIS, DIP #### [facility] [address] [place] [address] Color (U) YELLOW Normal [facility] Comment on above: Performed By: #### U RINALYSIS, DIP #### [facility] [address] [facility] [place] [address] Age at specimen collection = Normal [facility] Comment on above: Performed By: #### U RINALYSIS, DIP #### [facility] [address] [place] [address] Encounters Encounter Date Encounter Type Care Provider Facility Start: 09-19-2023 End: 09-20-2023 ambulatory Cr Howard MD Facility:[facility] Start: 03-29-2022 ambulatory TERRI Hameed NIMCOPOLLY Faci lity:[facility] Start: 03-08-2022 End: 03-09-2022 ambulatory TERRI AQUINO Facility:[facility] Start: 02-08-2022 End: 02-09-2022 ambulatory TERRI RINALDIPOLLY Facility:[facility] Start: 12-17-2021 End: 12-18-[address] ANA CARTER Facility:[facility] Start: 11-18-2021 End: 11-19-[address] ANA CARTER Facility:[facility] Start: 09-09-2021 End: 09-09-[address] ISIDRO WARE Facility:[facility] Payers Date Payer Category Payer Medicare [id number] 1960 Unknown [id number] 1960 Unknown [id number] 1945 Unknown [id number] 2.16.84 [id number] 1945 Unknown [id number] 2.16.84 [id number] 1945 Unknown [id number] 2.16.84 [id number] 1945 Unknown [id number] 2.16.84 [id number] 1945 Unknown [id number] 2.16.84 [id number] 1945 Unknown [id number] 2.16.84 [id number] 1945 Unknown [id number] 2.16.8 [id number] Summary Purpose Family History No Family History Records FoundNo Family History Records FoundNo Family History Records Found Advance Directives No Advanced Directives Records FoundNo Advanced Directives Records FoundNo Advanced Directives Records Found Additional Source Comments INFORMATION SOURCE (unrecogn ized section and content) DATE CREATED AUTHOR 08/10/2019 [facility] DATE CREATED AUTHOR AUTHOR'S ORGANIZ ATALEJANDRO 04/02/2022 [facility] DATE CREATED AUTHOR AUTHOR'S NEETA ATION 11/15/2023 [facility] FOR RECORDS PERTAINING TO PATIENTS WHO ARE [...] BE BASED ON THE PRIMARY CLINICAL RECORDS. [facility]. provides no warranty or guarantee of the accuracy or completeness of information in this document.
--- NOTE | 2023-11-15 13:28 | CT_ITS ---
The [address] [address] Patient Name: MAXIMINO RODRIGUEZ MRN: [id number] date: 1945 Sex: F Assigned Patient Location: ER Current Patient Location: ER Accession/Order Number: [id number] Exam Date: 11/15/2023 14:57 Report Date: 11/15/2023 15:53 At the request of: CLARENCE ALLAN Procedure: CT abdomen pelvis w con EXAMINATION: CT abdomen pelvis w con HISTORY: RLQ pain COMPARISON: No relevant comparison available. TECHNIQUE: CT images were created with IV contrast. Axial, Coronal, and Sagittal images. Dose reduction techniques were achieved by using automated exposure control and/or adjustment of mA and/or kV according to patient size and/or use of iterative reconstruction technique. FINDINGS: LUNG BASES: No visible pulmonary or pleural disease. LIVER: Diffuse hypoattenuation suggesting hepatic steatosis. No focal mass BILIARY: Surgical clips from cholecystectomy PANCREAS: No lesion, fluid collection, ductal dilatation, or atrophy. SPLEEN: No enlargement or focal lesion. ADRENALS: No mass or enlargement. KIDNEYS: Bilateral cortical hypodensities likely cysts. No hydronephrosis or obstructing nephrolithiasis BOWEL/MESENTERY: No visible mass, obstruction, or bowel wall thickening. The appendix is not visualized AORTA/VASCULAR: Moderate diffuse atherosclerosis. No aortic aneurysm RETROPERITONEUM: No mass or adenopathy. LYMPH NODES: No adenopathy. URINARY BLADDER: No visible focal wall thickening, lesion, or calculus. PELVIC ORGANS: Hysterectomy ABDOMINAL WALL: No mass or hernia. BONES: No bony lesion or fracture. Bilateral L5 pars interarticularis fractures. 5 mm anterolisthesis of L5 on S1 OTHER: Negative. CT/CT abdomen pelvis w con IMPRESSION: No acute intraperitoneal abnormality Electronically authenticated by: DEIDRE HOOPER Date: 11/15/2023 15:53
--- NOTE | 2023-11-15 13:31 | ED.ABDPAIN1 ---
HPI - Abdominal Pain General Chief Complaint: Dizziness Stated Complaint: ABDOMINAL PAIN Time Seen by Provider: 11/15/23 13:21 Source: patient Mode of arrival: ambulance Limitations: no limitations History of Present Illness HPI narrative: 78-year-old female presented to the emergency department for right lower quadrant abdominal pain which has been waxing and waning for 3 days. No injury. No dysuria or hematuria. No diarrhea or constipation. Right now it is not hurting much at all. Related Data Home Medications Medication Instructions Recorded Confirmed levothyroxine 300 mcg tablet 300 mcg PO DAILY 09/11/23 11/15/23 metoprolol tartrate 100 mg tablet 100 mg PO DAILY 09/11/23 11/15/23 furosemide 20 mg tablet 20 mg PO DAILY 11/15/23 11/15/23 Allergies Allergy/AdvReac Type Severity Reaction Status Date / Time No Known Drug Allergies Allergy Verified 11/15/23 13:09 Review of Systems ROS Narrative A ten point review of systems is negative except as noted above. [facility] Medical History (Updated 11/15/23 @ 16:01 by Brad Ivey MD) Obesity, morbid, BMI 40.0-49.9 ?E66.01 - Morbid (severe) obesity due to excess calories (ICD-10) Hypothyroidism (acquired) ?E03.9 - Hypothyroidism, unspecified (ICD-10) Hypertension ?I10 - Essential (primary) hypertension (ICD-10) Surgical History (Updated 09/11/23 @ 14:16 by Deedee Ken DO) S/P bilateral foot surgery ?Z98.890 - Other specified postprocedural states (ICD-10) S/P right mastectomy ?Z90.11 - Acquired absence of right breast and nipple (ICD-10) Exam Narrative Exam Narrative: Nurses note and vital signs reviewed and patient is not hypoxic. General: The patient appears in no apparent distress. Patient is resting comfortably on cart. Skin: Warm, dry, no pallor noted. There is no rash noted. Head: Normocephalic, atraumatic Eye: Normal conjunctiva, no drainage Ears, Nose, Mouth, and Throat: oral mucosa is moist. Nares patent. Cardiovascular: Regular Rate and Rhythm Respiratory: Patient is in no distress, no accessory muscle use, lungs are clear to auscultation, no wheezing, rales or rhonchi Back: non-tender GI: Abdomen is obese and nondistended. There are no masses palpable. No erythema or rash present on her abdomen in the right lower quadrant. She has very minimal tenderness there. Musculoskeletal: The patient has no evidence of calf tenderness, no pitting edema, symmetrical pulses noted bilaterally Neurological: A&O, normal speech Psychiatric: Cooperative Constitutional Vital Signs, click to edit/add: Last Vital Signs Temp 97.3 F L 11/15/23 13:09 Pulse 107 H 11/15/23 15:42 Resp 18 11/15/23 15:42 BP 200/120 H 11/15/23 15:42 Pulse Ox 100 11/15/23 15:42 O2 Del Method Room Air 11/15/23 13:09 Course Vital Signs Vital signs: Vital Signs Temperature 97.3 F L 11/15/23 13:09 Pulse Rate 100 H 11/15/23 13:09 Respiratory Rate 20 11/15/23 13:09 Blood Pressure 202/91 H 11/15/23 13:09 Pulse Oximetry 98 11/15/23 13:09 Oxygen Delivery Method Room Air 11/15/23 13:09 Temperature 97.3 F L 11/15/23 13:09 Pulse Rate 107 H 11/15/23 15:42 Respiratory Rate 18 11/15/23 15:42 Blood Pressure 200/120 H 11/15/23 15:42 Pulse Oximetry 100 11/15/23 15:42 Oxygen Delivery Method Room Air 11/15/23 13:09 MDM - Abdominal Pain MDM Narrative Medical decision making narrative: Workup including CAT scan of the abdomen is negative. No evidence of UTI. The patient will be discharged home and follow-up with her PCP if symptoms persist. Treatment diagnosis and follow-up were discussed with the patient. Differential Diagnosis Differential diagnosis: Likely abdominal pain, acute appendicitis, calculus of kidney, constipation, gastroenteritis and small bowel obstruction Lab Data Attestation: I reviewed the patient's lab results. Labs: Lab Results 11/15/23 11/15/23 Range/Units 13:30 14:10 WBC 9.2 (4.0-11.0) 10^3/uL RBC 3.83 L (4.20-5.40) 10^6/uL Hgb 13.4 (12.0-16.0) g/dL Hct 37.1 (36.0-48.0) % MCV 96.9 (81.0-99.0) fL MCH 35.0 H (26.7-34.0) pg MCHC 36.1 H (29.9-35.2) g/dL RDW 14.4 (11.0-15.0) % Plt Count 183 (150-450) 10^3/uL MPV 11.7 (9.5-13.5) fL Neut % (Auto) 76.4 H (43.0-75.0) % Lymph % (Auto) 15.6 L (20.5-60.0) % Cook % (Auto) 7.3 (1.7-12.0) % Eos % (Auto) 0.3 L (0.9-7.0) % Baso % (Auto) 0.2 (0.2-2.0) % Neut # (Auto) 7.0 H (1.4-6.5) 10^3/uL Lymph # (Auto) 1.4 (1.2-3.8) 10^3/uL Cook # (Auto) 0.7 (0.3-0.8) 10^3/uL Eos # (Auto) 0.0 (0.0-0.7) 10^3/uL Baso # (Auto) 0.0 (0.0-0.1) 10^3/uL Abs Immat Gran (auto) 0.02 (0.00-0.03) 10^3/uL Imm/Tot Granulo (auto) 0.2 (0.0-0.5) % Sodium 139 (136-145) mmol/L Potassium 4.2 (3.5-5.1) mmol/L Chloride 103 (98-107) mmol/L Carbon Dioxide 25.7 (21.0-32.0) mmol/L Anion Gap 14.5 BUN 27.0 H (7.0-18.0) mg/dL Creatinine 1.05 H (0.55-1.02) mg/dL Est GFR ( Amer) >60 (>=60) Est GFR (Non-Af Amer) 51 L (>=60) BUN/Creatinine Ratio 25.7 Glucose 112 H (74-106) mg/dL Calcium 9.9 (8.5-10.1) mg/dL Urine Color Yellow (YELLOW) Urine Clarity Clear (CLEAR) Urine pH 5.5 (5.0-9.0) Ur Specific [place] >=1.030 A (1.005-1.025) Urine Protein Trace (NEG/TRACE) mg/dL Urine Glucose (UA) Negative (NEGATIVE) mg/dL Urine Ketones Negative (NEGATIVE) mg/dL Urine Occult Blood Negative (NEGATIVE) Urine Nitrite Negative (NEGATIVE) Urine Bilirubin Negative (NEGATIVE) Urine Urobilinogen 0.2 (0.2-1.0) EU/dL Ur Leukocyte Esterase Negative (NEGATIVE) Urine RBC 0-2 (0-2) #/HPF Urine WBC 2-5 A (NONE SEEN) #/HPF Ur Squamous Epith Cells Moderate A (NONE/RARE) #/LPF Urine Crystals Seen A (None Seen) #/HPF Calcium Oxalate Crystal Rare Urine Bacteria Small A (NONE SEEN) #/HPF Urine Casts Seen A (NONE SEEN) #/LPF Hyaline Casts Rare Urine Mucus None seen (NONE SEEN) Imaging Data CT scan - abdomen: Radiologist's impression: ITS Impressions Abdomen/Pelvis CT 11/15/23 13:28 IMPRESSION: No acute intraperitoneal abnormality Electronically authenticated by: DEIDRE HOOPER Date: 11/15/2023 15:53 Discharge Plan Discharge Chief Complaint: Dizziness Clinical Impression: Abdominal pain Patient Disposition: Home, Self-Care Time of Disposition Decision: 16:01 Condition: Good Mode of Transportation: Private Vehicle Prescriptions / Home Meds: No Action levothyroxine 300 mcg tablet 300 mcg PO DAILY metoprolol tartrate 100 mg tablet 100 mg PO DAILY furosemide 20 mg tablet 20 mg PO DAILY Instructions: Abdominal Pain (ED) Stand Alone Forms: Portal Instructions Referrals: ANA CARTER [Primary Care Provider] - 1 week
[2023-11-15 14:02] LABS: Basophils Percent Auto 0.2 % (0.2-2.0); Eosinophils Percent Auto 0.3 % (0.9-7.0); Hematocrit 37.1 % (36.0-48.0); Hemoglobin 13.4 g/dL (12.0-16.0); Immature Granulocytes Abs Auto 0.02 10^3/uL (0.00-0.03); Immature Granulocytes Pct Auto 0.2 % (0.0-0.5); Lymphocytes Absolute Auto 1.4 10^3/uL (1.2-3.8); Lymphocytes Percent Auto 15.6 % (20.5-60.0); Mean Corpuscular HGB Conc 36.1 g/dL (29.9-35.2); Mean Corpuscular Volume 96.9 fL (81.0-99.0); Mean Platelet Volume 11.7 fL (9.5-13.5); Monocytes Absolute Auto 0.7 10^3/uL (0.3-0.8); Monocytes Percent Auto 7.3 % (1.7-12.0); Neutrophils Percent Auto 76.4 % (43.0-75.0); Platelet Count 183 10^3/uL (150-450); Red Blood Count 3.83 10^6/uL (4.20-5.40); Red Cell Distribution Width 14.4 % (11.0-15.0); White Blood Count 9.2 10^3/uL (4.0-11.0)
[2023-11-15 14:13] LABS: Anion Gap 14.5; BUN Creatinine Ratio 25.7; Calcium 9.9 mg/dL (8.5-10.1); Carbon Dioxide 25.7 mmol/L (21.0-32.0); Chloride 103 mmol/L (98-107); Estimated GFR (African America >60 (>=60); Estimated GFR (Non-African Ame 51 (>=60); Glucose 112 mg/dL (74-106); Potassium 4.2 mmol/L (3.5-5.1); Sodium 139 mmol/L (136-145)
[2023-11-15 14:33] LABS: Bilirubin Urine NEGATIVE (NEGATIVE); Blood Urine NEGATIVE (NEGATIVE); Clarity Urine CLEAR (CLEAR); Color Urine YELLOW (YELLOW); Glucose Urine UA NEGATIVE (NEGATIVE); Ketones Urine NEGATIVE (NEGATIVE); Leukocyte Esterase Urine NEGATIVE (NEGATIVE); Nitrite Urine NEGATIVE (NEGATIVE); Protein Urine TRACE mg/dL (NEG/TRACE); Specific Gravity Urine >=1.030 (1.005-1.025); Urobilinogen Urine 0.2 EU/dL (0.2-1.0); pH Urine 5.5 (5.0-9.0)
[2023-11-15 14:49] LABS: Bacteria Urine SMALL #/HPF (NONE SEEN); Calcium Oxalate Crystals Urine RARE; Cast Seen? SEEN #/LPF (NONE SEEN); Crystals Seen? Seen #/HPF (None Seen); Hyaline Casts Urine RARE; Mucus Urine NONE SEEN (NONE SEEN); RBC Urine 0-2 #/HPF (0-2); Squamous Epithelial Cell Urine MODERATE #/LPF (NONE/RARE)
[2023-11-15 15:42] VITALS: BP 200/120; PULSE 107; RESP 18; O2SAT 100
[2023-11-15] MEDS: HYDRALAZINE HCL 20 MG/ML VIAL 10 MG IVP (15:54)
[2023-11-15 16:08] VITALS: BP 134/103
--- NOTE | 2023-11-15 17:47 | ECG_ITS ---
The 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
== END 2023-11-15 16:21 | disposition home or self-care (01) ==
PROVIDERS: Emergency Provider Emergency Medicine; PCP Family Medicine
DX: R10.9 Unspecified abdominal pain (principal); E66.01 Morbid (severe) obesity due to excess calories; I10 Essential (primary) hypertension; E03.9 Hypothyroidism, unspecified; Z90.11 Acquired absence of right breast and nipple; Z98.890 Other specified postprocedural states; Z79.899 Other long term (current) drug therapy; Z79.890 Hormone replacement therapy; Z68.41 Body mass index [BMI] 40.0-44.9, adult
CPT/HCPCS: 36415; 74177; 80048; 81001; 85025; 93005; 96374; 99285; J0360; Q9967

== ENCOUNTER 2025-08-07 10:06 | Emergency (ER) | payer MEDICARE, OTHER, SELFPAY ==
[2025-08-07 10:08] VITALS: BP 168/130; PULSE 93; TEMP 36.9; O2SAT 97; BMI 39.9
--- NOTE | 2025-08-07 10:38 | PC.NURSE ---
Patient reports not taking her blood pressure medication this morning (Labetalol) due to it upsetting her stomach Pt states she woke up with this lower back pain on the right side that goes down through her right buttock and down the back of her right leg while sitting in ER bed patient state she now can feel the pain into her groin as well pt states pain is an 8/10 while sitting and a 10/10 with movement pt placed into a hospital gown and positioned in bed to the most comfortable position Pt states she took 800mg of ibuprofen last night to help with pain but was unsuccessful and states she took a couple aspirin this morning with no relief Pt states she lives alone and ambulates with a walker
--- NOTE | 2025-08-07 10:43 | XR_ITS ---
The [address] [address] Patient Name: MAXIMINO RODRIGUEZ MRN: [id number] date: 1945 Sex: F Assigned Patient Location: ER Current Patient Location: ED.MAIN Accession/Order Number: [id number] Exam Date: 08/07/2025 11:00 Report Date: 08/07/2025 11:20 At the request of: JAIME RAINES MD Procedure: XR hip RT 2V w/ pelvis RIGHT HIP WITH AP PELVIS - 3 views COMPARISON: CT 11/15/2023 CLINICAL DATA: Right hip pain for the past few days. No injury. AP view of the pelvis as well as AP and frog-lateral views of the right hip were obtained. No fracture or dislocation is identified. The hip joint spaces are maintained and there is no prominent hypertrophy. The SI joints are intact and there is mild sclerosis. Mild degenerative changes are also visualized at the pubic symphysis and lower imaged lumbar spine. There are bilateral injection granulomas. No other soft tissue abnormalities are present. XR/XR hip RT 2V w/ pelvis IMPRESSION: NO ACUTE BONY FINDINGS. Impression dictated by: Darcy Epstein M.D. 08/07/2025 11:20 AM Dictation Location: [place] [address] Electronically authenticated by: [id number] Y Date: 08/07/2025 11:20
--- NOTE | 2025-08-07 10:44 | ED_ITS ---
HPI HPI - General Adult General Chief complaint: Back Pain/Injury Stated complaint: BACK PAIN Time Seen by Provider: 08/07/25 10:21 Source: patient Mode of arrival: ambulance Limitations: no limitations History of Present Illness HPI narrative: The patient is a 80-year-old female presenting to the ER after she started having some right hip pain almost a few days ago, that she usually sleeps in her recliner which is a new recliner and she denies any fall or injury Pain is only limited to the right hip Related Data Home Medications ?Medication ?Instructions ?Recorded ?Confirmed levothyroxine 300 mcg tablet 300 mcg PO DAILY 09/11/23 11/15/23 metoprolol tartrate 100 mg tablet 100 mg PO DAILY 09/0211/15/23 furosemide 20 mg tablet 20 mg PO DAILY 11/15/2311/03 Previous Rx's ?Medication ?Instructions ?Recorded famotidine 20 mg tablet (Pepcid) 20 mg PO BID #10 tabs 08/07/25 meloxicam 15 mg tablet 15 mg PO DAILY PRN pain #10 tabs 08/07/25 orphenadrine citrate 100 mg 100 mg PO DAILY PRN muscle spasm 08/07/25 tablet,extended release #10 tabs prednisone 20 mg tablet 40 mg (2 x 20 mg) PO DAILY 5 days 08/07/25 #10 tabs Allergies Allergy/AdvReac Type Severity Reaction Status Date / Time No Known Drug Allergies Allergy Verified 11/15/23 13:09 Opioid HPI Opioid Management Most Recent Opioid Data: Last Pain Scale 8 Today, 10:49 Last Pain Intensity 6 09/12/23, 13:42 Last ED Pain Assessment Today, 10:18 Last MAR Pain Assessment Today, 10:49 Review of Systems ROS Status of ROS 10 or more systems reviewed and unremark able except as noted in history and below [facility] Medical History (Updated 08/07/25 @ 12:[address] MD) Obesity, morbid, BMI 40.0-49.9 ?E66.01 - Morbid (severe) obesity due to excess calories (ICD-10) Hypothyroidism (acquired) ?E03.9 - Hypothyroidism, unspecified (ICD-10) Hypertension ?I10 - Essential (primary) hypertension (ICD-10) Surgical History (Updated 09/11/23 @ 14:16 by Deedee Suellen, DO) S/P bilateral foot surgery ?Z98.890 - Other specified postprocedural states (ICD-10) S/P right mastectomy ?Z90.11 - Acquired absence of right breast and nipple (ICD-10) Social History Little interest or pleasure in doing things: not at all Feeling down, depressed, or hopeless: not at all Exam Narrative Exam Narrative: Nurses notes and vital signs reviewed and patient is not hypoxic. General: Well-appearing and in no apparent distress. Skin: Warm, dry, no pallor noted. No rash. Head: Normocephalic, atraumatic. Neck: Supple, non-tender. Cardiovascular: Regular Rate and Rhythm without murmur, gallop or rub. Respiratory: No accessory muscle use or respiratory distress. Lungs are clear to auscultation, no wheezing, rales or rhonchi Back: No midline thoracic or lumbar vertebral tenderness. No CVA tenderness Musculoskeletal: normal ROM, no calf or popliteal tenderness, only have tenderness palpation of the right hip posteriorly she also mentioned that the pain radiates sometimes to the groin. Right lower extremity shows no vascular injury GI: Abdomen is soft, non-distended. Normal bowel sounds. No masses appreciated. No tenderness to palpation. No rebound, guarding, or rigidity noted. Neurological: A&O x4. No cranial nerve dysfunction observed. No truncal ataxia. Moves all extremities. Sensation intact. Psychiatric: Cooperative and interactive. Normal mood and affect. Constitutional Vital Signs, click to edit/add: Last Vital Signs Temp 98.5 F 08/07/25 10:08 Pulse 69 08/07/25 11:22 Resp 16 08/07/25 11:22 BP 160/86 H 08/07/25 11:22 Pulse Ox 96 08/07/25 11:22 O2 Del Method Room Air 08/07/25 10:08 Course Vital Signs Vital signs: Vital Signs Temperature 98.5 F 08/07/25 10:08 Pulse Rate 93 H 08/07/25 10:08 Respiratory Rate 18 08/07/25 10:08 Blood Pressure 168/130 H 08/07/25 10:08 Pulse Oximetry 97 08/07/25 10:08 Oxygen Delivery Method Room Air 08/07/25 10:08 Temperature 98.5 F 08/07/25 10:08 Pulse Rate 69 08/07/25 11:22 Respiratory Rate 16 08/07/25 11:22 Blood Pressure 160/86 H 08/07/25 11:22 Pulse Oximetry 96 08/07/25 11:22 Oxygen Delivery Method Room Air 08/07/25 10:08 Medical Decision Making MDM Narrative Medical decision making narrative: Was noted initially that the blood pressure was elevated but the patient did not take her blood pressure medication today and it was also noted that the patient and her blood pressure was a lot better than the initial taken blood pressure by the EMS The patient x-ray of the right hip showed no acute pathology Her presentation is mostly secondary to hip bursitis Take her blood pressure medication and follow-up with her primary care for further evaluation management of her blood pressure The patient discharged home with Mobic and prednisone as well as Norflex and Pepcid The patient to follow-up with the primary care within 2 to 3 days and to come back to the ER in case of any worsening of the current symptoms or any new symptoms or concerns Discharge Plan Discharge Chief Complaint: Back Pain/Injury Clinical Impression: Hip bursitis Patient Disposition: Home, Self-Care Time of Disposition Decision: 12:54 Condition: Good Prescriptions / Home Meds: New prednisone 20 mg tablet 40 mg PO DAILY 5 Days Qty: 10 0RF meloxicam 15 mg tablet 15 mg PO DAILY PRN (Reason: pain) Qty: 10 0RF famotidine [Pepcid] 20 mg tablet 20 mg PO BID Qty: 10 0RF orphenadrine citrate 100 mg tablet extended release 100 mg PO DAILY PRN (Reason: muscle spasm) Qty: 10 0RF No Action levothyroxine 300 mcg tablet 300 mcg PO DAILY metoprolol tartrate 100 mg tablet 100 mg PO DAILY furosemide 20 mg tablet 20 mg PO DAILY Print Language: Syrian Instructions: Hip Bursitis (ED) Additional Instructions: Take your blood pressure medication at home when you get home and follow-up with your primary care The patient to follow-up with the primary care within 2 to 3 days and to come back to the ER in case of any worsening of the current symptoms or any new symptoms or concerns Referrals: ANA CARTER [Physician, Family Practice] - 1 week Discharge Date/Time: 08/07/25 13:22
[2025-08-07] MEDS: KETOROLAC TROMETHAMINE 30 MG/ML VIAL 15 MG IM (10:48)
[2025-08-07] MEDS: PREDNISONE 20 MG TABLET 40 MG PO (10:49)
[2025-08-07] MEDS: OXYCODONE HCL/ACETAMINOPHEN 5MG/325MG 1 TAB PO (10:49)
[2025-08-07] MEDS: ORPHENADRINE 60 MG/2 ML VIAL IM (10:49)
--- OUTSIDE RECORDS SUMMARY | 2025-08-07 11:11 | XMS_ITS | Clinical Summary ---
Author Organization [facility] Healthcare Address [address] [place] [address] Care Team Providers Care Inspector Cold Working Name Role Phone Unavailable Primary Care Provider Unavailabl e Social History Tobacco UseTypesPacks/DayYears UsedDateSmoking Tobacco: Never Assessed CommentsUnknownSex and Gender InformationValueDate RecordedSex Assigned at Not on fileLegal HsoNncnqo32/15/2023 6:34 PM EDTGender IdentityNot on fileSexual OrientationNot on file Plan of Treatment Not on file Insurance
--- OUTSIDE RECORDS SUMMARY | 2025-08-07 11:11 | XMS_ITS | Patient Health Record ---
Author Organization [facility] [place] Address [address] [place] [address] Care Team Providers Care Sweatband Separator Name Role Phone None, Unknown or Primary Care Provider Unavailab le Allergies No Known Allergies Reason For Referral No Information Medications Medication SIG (Take, Route, Frequency, Duration) Notes Start Date End Date Status Clotrimazole-Betamethasone 1 -0.05 % 1 application Externally Twice a day; Duration: 14 days Apply twice daily to both feet/affected area. 09/28/2023 HvjflqAtnbeqiqk64/01/0827OxnaxdZsimblqph24/01/1900Active Social History Tobacco Use: Social History Observation Description Date Details (start date - stop date) Former Smoker NA - NA Tobacco Use/Smoking Question Answer Notes Patient is a former smoker Problems Problem Type SNOMED Code ICD Code Onset Dates Problem Status W/U Status Risk Notes Problem Hypertension (55017299) Hypertension (I10 ) ActiveconfirmedProblemHypothyroid (31286142)Hypothyroid (E03.9)Activeconfirmed ProblemBody mass index 40+ - severely obese (398798151)Morbid obesity with BMI of 40.0-44.9, adult (Z68.41)Activeconfirmed Plan Of Treatment No Information Insurance Providers Payer Name Payer Address Payer Phone Subscriber Number Group Number Insured Name Patient Relationship to Insured Coverage Start Date Coverage End Date [place] [address] [place] [address] [id number] Andrés Odellelf - patient is the insuredMUTUAL OF [address] MEDICARE SUPP CLMS DEPT GIACOMO TEJEDA [id number], MadgeSelf - patient is the insured Medical (General) History Medical History History ICD Code Hypertension I10 Thyroid disease E07.9 Surgical History Surgery Date(Month/Year) bilateral foot surgery right mastectomy
[2025-08-07 11:22] VITALS: BP 160/86; PULSE 69; O2SAT 96
--- OUTSIDE RECORDS SUMMARY | 2025-08-07 11:23 | XMS_ITS | CCD ---
Author Organization [facility] Care Team Providers Care Convention Manager Name Role Phone TERRI AQUINO Attending Unavailable HOUSE, DR PEREZ Primary Care Unavailable HIGHLANDER, TERRI Hameed Admitting Unavailable HOUSE, DR PEREZ Attending Unavailable HOUSE, DR PEREZ Consulting Unavailable HOUSE, DR PEREZ Primary Care Unavailable HOUSE, DR PEREZ Admitting Unavailable HOUSE, DR PEREZ Admitting Unavailable WEST, DR DEIDRE Lowe Consulting Unavailable HOUSE, DR [...] Care Unavailable HIGHLANDER, TERRI Hameed Consulting Unavailable MILES, TERRI Hameed Attending Unavailable HOUSE, DR PEREZ Primary Care Unavailable HIGHLANDER, TERRI Hameed Admitting Unavailable Lee FAJARDO, Cr Graham Attending Unavailable HOUSE, ANA Santoro Primary Care Unavailable Problems Active Problems Problem ClassificationProblemDateDocumented DateEpisodic/ChronicCancer of breast (1 source)Personal history of malignant neoplasm of breast; Translations: [PERS HX MALIGNANT NEOPLASM BREAST]Onset: 33-28-4381VfdiopumDxejwhayg hypertension (1 source)Essential (primary) hypertension; Translations: [ESSENTIAL PRIMARY HYPERTENSION]Onset: 90-37-7951ZzdczoyUhcxl connective tissue disease (4 sources)Pain in right foot; Translations: [PAIN IN RIGHT FOOT]Onset: 04-58-2425LkbsksorGbgdc connective tissue disease (1 source)Pain in left foot; Translations: [PAIN IN LEFT FOOT]Onset: 02-22-2022 EpisodicOther screening for suspected conditions (not mental disorders or infectious disease) (4 sources)Encounter for screening mammogram for malignant neoplasm of breast; Translations: [ENC SCR MAMMO MALIG NEOPLASM BREAST]Onset: 99-80-3270Nkofyxnf Other skin disorders (5 sources)Disorder of the skin and subcutaneous tissue, unspecified; Translations: [DISORDER SKIN AND SUBQ TISSUE UNS]Onset: 49-87-8353Rsanxvla Residual codes; unclassified (1 source)Edema, unspecified; Translations: [EDEMA UNSPECIFIED]Onset: 03-22-2022 EpisodicResidual codes; unclassified (1 source)Family history of malignant neoplasm of digestive organs; Translations: [FAM HX MALIG NEOPLASM DIGESTIV ORGN]Onset: 55-37-8143Fehlujpi Residual codes; unclassified (1 source)Family history of malignant neoplasm of trachea, bronchus and lung; Translations: [FAM HX MALIG NEOPLSM TRACH BRON LNG]Onset: 34-09-0523Uxclekzt Residual codes; unclassified (1 source)Family history of malignant neoplasm of bladder; Translations: [FAM HX MALIGNANT NEOPLASM BLADDER]Onset: 81-55-2074CforhagqRavrhxghqaz injury; contusion (1 source)Blister (nonthermal), unspecified lesser toe(s), sequela; Translations: [BLISTER NONTHERM UNS LESR TOES SEQ]Onset: 31-58-6357Oljzznlu Thyroid disorders (5 sources)Hypothyroidism, unspecified; Translations: [HYPOTHYROIDISM UNSPECIFIED]Onset: 06-71-7852Takeydx Past or Other Problems Problem ClassificationProblemDateDocumented DateEpisodic/ChronicGastrointestinal hemorrhage (4 sources)Hemorrhage of anus and rectum; Translations: [HEMORRHAGE OF ANUS AND RECTUM]Onset: 03-97-7412TexnybguZubvlrdmekbem symptoms and ill-defined conditions (1 source)Other abnormal findings in urine; Translations: [OTHER ABNORMAL FINDINGS IN URINE]Onset: 80-39-6810JeivcpnxCqfkemi (1 source)Tinea corporis; Translations: [TINEA CORPORIS]Onset: 09-11-2021 Episodic Results Test NameValueInterpretationReference RangeFacilityOutside Recordson 12-01-2023 Outside [id number]#1.00[facility]Outside Recordson 85-66-9443Vxpvuoq Records [id number]#1.00[facility] Outside [id number]#1.00[facility] HospitalOutside Recordson 51-94-4885Qbsxazu Records [id number]#1.00[facility] Provider Orderson 57-91-8791Jgmwzinj Orders [id number]#1.00[facility] Outside Recordson 90-22-3761Lovesoo Records [id number]#1.00[facility] Outside Recordson 22-54-0013Vhqtepf Records [id number]#1.00[facility] Outside [id number]#1.00[facility] HospitalProvider Orderson 54-17-8038Blrpccmv Orders [id number]#1.00[facility] Outside Recordson 50-18-7848Qmdoofd Records [id number]#1.00[facility] Patient Provided Health Dataon 08-09-6308Pdbbpgd Provided Health Data [id number]#1.00[facility] Provider Orderson 95-34-4832Nrqgmzwj Orders [id number]#1.00[facility] HospitalRad - Other Radiology Reporton 43-93-8519Cdw - Other Radiology Report [id number]#1.00[facility] Patient Handouton 10-46-0970Sexasbj Handout [id number]#1.00[facility] HospitalXR FOOT CAM MIN 3 VIEWSon 40-97-0858KQ FOOT CAM MIN 3 VIEWSEXAMINATION: XR FOOT CAM MIN 3 VIEWS HISTORY: [...] Electronically authenticated by: MELA HERNANDEZ Date: 2022-02-09 06:[address] [place], [place] [address]MG MAMM DX 3D LT CADon 15-06-4137GC MAMM DX 3D LT CADPatient: MAXIMINO RODRIGUEZ Exam Date: 12/17/2021 : 1945 Gender:F Ordering : DR ANA CARTER D.O. Admission #: [id number] Family : Order #: [id number] CLICK HERE TO VIEW EXAM RADIOLOGY REPORT [...] bladder cancer at age 80. LOCATION: [facility] BREAST COMPOSITION: Scattered areas fibroglandular density. FINDINGS: [...] by: Deidre Duarte MD on 12/17/2021 at 11:07NormalThMadison HealthCBC AUTO DIFFon 67-29-8882CQMS #0.0 103/ulNormal0.0-0.1Z[facility]ville City HospitalComment on above:Performed By: #### CBC #### [facility] [address] [address] [address] Arsalan KapoorBasophils/100 WBC (Bld)0.3 %Normal0.2-2.0[facility] Comment on above:Performed By: #### CBC #### [facility] [address] [address] [address] Arsalan Starr #0.1 103/ulNormal0.0-0.7The [facility] SystemComment on above: Performed By: #### CBC #### [facility] [address] [address] [address] Arsalan Romeroosinophils/100 WBC (Bld)1.2 %Normal0.9-7.0[facility] Comment on above:Performed By: #### CBC #### [facility] [address] [address] [address] Arsalan Romerorythrocyte distribution width (RBC) [Ratio]14.0 %Lbthxz42.0-15.0 The [facility] SystemComment on above:Performed By: #### CBC #### [facility] [address] [address] [address] Arsalan Rojasatocrit (Bld) [Volume fraction]37.6 %Uvsxxl94.0-48.0The [facility] SystemComment on above:Performed By: #### CBC #### [facility] [address] [place] [address] Dr. Arsalan KapoorHemoglobin (Bld) [Mass/Vol]13.1 g/jQJoiewj29.0-16.0The [facility] SystemComapex [facility] center on above:Performed By: #### CBC #### [facility] [address] [place] [address] Dr. Arsalan KapoorIG #0.03 10e3/ulNormal0.00-0.03[facility] on above:Performed By: #### CBC #### [facility] [address] [place] [address] Dr. Arsalan Brokc %0.5 %Normal0.0-0.5The [facility] SystemComment on above: Performed By: #### CBC #### [facility] [address] [place] [address] Dr. Arsalan Mathews #1.7 103/ulNormal1.2-3.8[facility] on above:Performed By: #### CBC #### [facility] [address] [place] [address] Dr. Arsalan Wickmphocytes/100 WBC (Bld)25.8 %Qrukgk63.5-60.0The [facility] SystemComment on above:Performed By: #### CBC #### [facility] [address] [place] [address] Dr. Arsalan GoodmanUAL DIFF REQNONormalThe [facility] SystemComment on above: Performed By: #### CBC #### [facility] [address] [place] [address] Dr. Arsalan Ibarra (RBC) [Entitic mass]35.4 pgCritically high26.7-34.0The [facility] HospitalComment on above:Performed By: #### CBC #### [facility] [address] [place] [address] Dr. Arsalan Goins (RBC) [Mass/Vol]34.8 g/bTHrdrku06.9-35.2The [facility] SystemComment on above:Performed By: #### CBC #### [facility] [address] [place] [address] Dr. Arsalan Goins (RBC) [Entitic vol]101.6 fLCritically high81.0-99.0The [facility] SystemComment on above:Performed By: #### CBC #### [facility] [address] [place] [address] Dr. Arsalan Valladares #0.4 103/ulNormal0.3-0.8The [facility] SystemComment on above:Performed By: #### CBC #### [facility] [address] [place] [address] Dr. Arsalan Kuoocytes/100 WBC (Bld)6.4 %Normal1.7-12.0[facility] Comment on above:Performed By: #### CBC #### [facility] [address] [place] [address] Dr. Arsalan Escobar #4.3 103/ulNormal1.4-6.5The [facility] SystemComment on above:Performed By: #### CBC #### [facility] [address] [place] [address] Dr. Arsalan Hinkleutrophils/100 WBC (Bld)65.8 %Hwqiaw74.0-75.0The [facility] SystemComment on above:Performed By: #### CBC #### [facility] [address] [place] [address] Dr. Arsalan Ragsdalelet mean volume (Bld) [Entitic vol]10.1 fLNormal9.5-13.5The [facility] SystemComment on above:Performed By: #### CBC #### [facility] [address] [place] [address] Dr. Arsalan PedrozaT255 103/aaIaqjsl619-311Mwq [facility] SystemComment on above: Performed By: #### CBC #### [facility] [address] [place] [address] Dr. Arsalan KapoorRBC3.70 106/ulCritically low4.20-5.40The [facility] SystemComment on above:Performed By: #### CBC #### [facility] [address] [place] [address] Dr. Arsalan KapoorWBC6.6 103/ulNormal4.0-11.0The [facility] SystemComment on above: Performed By: #### CBC #### [facility] [address] [place] [address] Dr. Arsalan Escobar 14(COMP METB)on 38-73-9574Xamcwkl [Mass/Vol]3.7 g/dLNormal 3.5-5.0The [facility] SystemComment on above:Performed By: #### CMP, T4, TSH #### [facility] [address] [place] [address] Dr. Arsalan KapoorAlbumin/Globulin [Mass ratio]0.9 {ratio}NormalThe [facility] Health SystemComment on above:Performed By: #### CMP, T4, TSH #### [facility] [address] [place] [address] Dr. Arsalan Adkins [Catalytic activity/Vol]80 U/LAkllap69-747Uah [facility] SystemComment on above:Performed By: #### CMP, T4, TSH #### [facility] [address] [place] [address] Dr. Arsalan Plasencia [Catalytic activity/Vol]9 U/LNormal9-52[facility] Comment on above:Performed By: #### CMP, T4, TSH #### [facility] [address] [place] [address] Dr. Arsalan Hernández gap [Moles/Vol]11.8 mmol/LNormalThe [facility] Comment on above:Performed By: #### CMP, T4, TSH #### [facility] [address] [place] [address] Dr. Arsalan KapoorAST [Catalytic activity/Vol]4 U/LCritically smw02-38Qyz [facility] SystemComment on above:Performed By: #### CMP, T4, TSH #### [facility] [address] [address] [address] Arsalan KapoorBilirubin [Mass/Vol]0.7 mg/dLNormal0.2-1.3[facility] Comment on above:Performed By: #### CMP, T4, TSH #### [facility] [address] [place] [address] Dr. Arsalan KapoorCalcium [Mass/Vol]9.0 mg/dLNormal8.4-10.2[facility] Comment on above:Performed By: #### CMP, T4, TSH #### [facility] [address] [place] [address] Dr. Arsalan KapoorChloride [Moles/Vol]107 mmol/SVuovun96-562Azw [facility] Comment on above:Performed By: #### CMP, T4, TSH #### [facility] [address] [place] [address] Dr. Arsalan KapoorCO2 [Moles/Vol]25.6 mmol/AXlxzfo93.0-30.0[facility] Comment on above:Performed By: #### CMP, T4, TSH #### [facility] [address] [place] [address] Dr. Arsalan KapoorCreatinine [Mass/Vol]0.87 mg/dLNormal0.52-1.04The [facility] SystemComment on above:Performed By: #### CMP, T4, TSH #### [facility] [address] [place] [address] Dr. Arsalan RomeroGFR-AF SRI LANKAN>60Normal>=60The [facility] SystemComment on above:Performed By: #### CMP, T4, TSH #### [facility] [address] [place] [address] Dr. Arsalan RomeroGFR-NON AF SRI LANKAN>60Normal>=60The [facility] SystemComment on above:Performed By: #### CMP, T4, TSH #### [facility] [address] [address] [address] Arsalan KapoorGlobulin (S) [Mass/Vol]4.0 g/dLNoGrand Lake Joint Township District Memorial HospitalComment on above:Performed By: #### CMP, T4, TSH #### [facility] [address] [address] [address] Arsalan KapoorGlucose [Mass/Vol]99 mg/sOLnssfl75-991FnfZanesville City Hospital Comment on above:Performed By: #### CMP, T4, TSH #### [facility] [address] [place] [address] Dr. Arsalan KapoorPotassium [Moles/Vol]4.4 mmol/LNormal3.4-5.0[facility] Comment on above:Performed By: #### CMP, T4, TSH #### [facility] [address] [place] [address] Dr. Arsalan KapoorProtein [Mass/Vol]7.7 g/dLNormal6.1-8.2[facility] Comment on above:Performed By: #### CMP, T4, TSH #### [facility] [address] [place] [address] Dr. Arsalan KapoorSodium [Moles/Vol]140 mmol/WWvwpoa479-686EttZanesville City Hospital Comment on above:Performed By: #### CMP, T4, TSH #### [facility] [address] [address] [address] Arsalan KapoorUrea nitrogen [Mass/Vol]27.0 mg/dLCritically high7.0-17.0The [facility] SystemComment on above:Performed By: #### CMP, T4, TSH #### [facility] [address] [place] [address] Dr. Arsalan KapoorUrea nitrogen/Creatinine [Mass ratio]31.0 mg/mgNoGrand Lake Joint Township District Memorial HospitalComment on above:Performed By: #### CMP, T4, TSH #### [facility] [address] [place] [address] Dr. Arsalan Urena4on 87-57-8191A7 [Mass/Vol]3.70 ug/dLCritically low5.53-11.00[facility] Hospitalment on above:Performed By: #### CMP, T4, TSH #### [facility] [address] [place] [address] Dr. Arsalan Venegas 09-00-1042LWT57.174 uIU/mLCritically high0.470-4.680Z[facility]ville City HospitalComment on above:Performed By: #### CMP, T4, TSH #### [facility] [address] [place] [address] Dr. Arsalan Patel [facility]iffin HospitalComment on above: Result Comment: <0.34 UIU/ml HYPERTHYROID 0.34-5.60 UIU/ml EUTHYROID >5.60 UIU/ml HYPOTHYROIDPerformed By: #### CMP, T4, TSH #### [facility] [address] [place] [address] Dr. Arsalan Lloyd URINEon 35-18-3163UHTFPYN URINECulture Observations: HEAVY GROWTH OF MIXED GENITAL ORAL. NO POTENTIAL PATHOGENS SEEN.NormalZanesville City HospitalComment on above:Performed By: #### URCX #### [facility] [address] [place] [address] Dr. Arsalan Jones URINE PROFILEon 49-24-6197Oznjrhttr Ql (U)NegativeNormal NEGATIVEZanesville City HospitalComment on above:Performed By: #### SHAGGY HUIZAR #### [facility] [address] [place] [address] Dr. Arsalan Kearney (U)SL CLOUDYAbnormalCLEARThMadison HealthComment on above:Performed By: #### SHAGGY HUIZAR #### [facility] [address] [place] [address] Dr. Arsalan Ramirez (U)YELLOWNormalYELLOWZanesville City HospitalComment on above: Performed By: #### SHAGGY HUIZAR #### [facility] [address] [place] [address] Dr. Arsalan Booekr micrscopic examination will be performed if indicated. NormalRiverview Health Institute HospitalComment on above:Performed By: #### BHUPENDRA, ERUR #### [facility] [address] [place] [address] Dr. Arsalan KapoorGlucose Ql (U)NegativeNormalNEGATIVEZanesville City HospitalComment on above:Performed By: #### BHUPENDRA, ERUR #### [facility] [address] [place] [address] Dr. Arsalan KapoorHemoglobin Ql (U)MODERATEAbnormalNEGATIVEZanesville City Hospital Comment on above:Performed By: #### BHUPENDRA, ERUR #### [facility] [address] [place] [address] Dr. Arsalan KapoorKetones Ql (U)NegativeNormalNEGATIVEZanesville City HospitalComment on above:Performed By: #### BHUPENDRA, ERUR #### [facility] [address] [place] [address] Dr. Arsalan KapoorLEUKOCYTESNegativeNormalNEGATIVEZanesville City HospitalComment on above:Performed By: #### BHUPENDRA ERUR #### [facility] [address] [place] [address] Dr. Arsalan Javedtrite Ql (U)NegativeNormalNEGATIVEZanesville City HospitalComment on above:Performed By: #### BHUPENDRA, ERUR #### [facility] [address] [place] [address] Dr. Arsalan KapoorpH (U)5.0 [pH]Normal5-9Z[facility] City HospitalComment on above: Performed By: #### BHUPENDRA, ERUR #### [facility] [address] [place] [address] Dr. Arsalan KapoorSPEC GRAVITY1.727Ucmhpedy4.005-<=1.025[facility] Comment on above:Performed By: #### BHUPENDRA, ERUR #### [facility] [address] [place] [address] Dr. Arsalan KapoorUA PROTEINNegativeNormalNEGATIVE/ TRACEZanesville City Hospital Comment on above:Performed By: #### BHUPENDRA, ERUR #### [facility] [address] [address] [address] Arsalan LOBO INDINDICATEDMansfield HospitalComment on above: Performed By: #### BHUPENDRA, ERUR #### [facility] [address] [address] [address] Arsalan Rojas Qn (U)0.2 {Gallo'U}/dLNormal0.2 - 1.0The [facility] SystemComment on above:Performed By: #### BHUPENDRA, ERUR #### [facility] [address] [address] [address] Arsalan CHEN ONLYon 36-89-0872AHOZFDYBKNANMOXXPqmlkrdzLJRS SEENZanesville City HospitalComment on above:Performed By: #### BHUPENDRA ERUR #### [facility] [address] [place] [address] Dr. Arsalan Talamantes identified Cx Nom (U)INDICATEDMansfield HospitalComment on above:Performed By: #### BHUPENDRA ERUR #### [facility] [address] [place] [address] Dr. Arsalan Riley SEENNormalNONE SEENZanesville City HospitalComment on above:Performed By: #### BHUPENDRA, ERUR #### [facility] [address] [place] [address] Dr. Arsalan Castelan LM Nom (Urine sed)NONE SEENNormalNONE SEENZanesville City HospitalComment on above:Performed By: #### BHUPENDRA, ERUR #### [facility] [address] [place] [address] Dr. Arsalan Maxthelial cells LM Ql (Urine sed)MODERATEAbnormalNONE SEEN /RARE The [facility] SystemComment on above:Performed By: #### BHUPENDRA, ERUR #### [facility] [address] [place] [address] Dr. Arsalan StraussbnormalNONE SEENZanesville City HospitalComment on above:Performed By: #### BHUPENDRA, ERUR #### [facility] [address] [address] [address] Arsalan KapoorTrumfDHG0-4Muucwu8-7Dbm Memorial Health SystemComment on above:Performed By: #### BHUPENDRA, ERUR #### [facility] [address] [address] [address] Arsalan KapoorWBCNONThiago SEENNormalNONE SEENThe [facility] Health SystemComment on above: Performed By: #### BHUPENDRA, ERUR #### [facility] [address] [address] [address] Arsalan KapoorXR ABD FLAT UP_PA Tunde 94-98-6491PS ABD FLAT UP_PA CHEXAM: XR ABD FLAT UP_PA CH HISTORY: UNSPECIFIED [...] Electronically authenticated by: SHAD PFEIFFER Date: 2021-09-09 05:54Mansfield HospitalCT BRAIN WOon 66-46-0407TB BRAIN WOEXAMINATION: CT BRAIN WO HISTORY: Confusion, headache. COMPARISON: None. TECHNIQUE: CT examination of the head without IV contrast. Dose reduction techniques were achieved by using automated exposure control and/or adjustment of mAand/or kV according to patient size and/or use [...] indicated. Report electronically signed by: Dr. Adi ShafferMemorial HospitalUrinalysis Johnny 13-74-8780Hjrzorykc esterase Test strip Ql (U) NegativeNormalNEGAvita Health System Bucyrus HospitalComment on above:Performed By: #### URINALYSIS, DIP #### [address] [place] [address] Nitrite Ql (U)NegativeNormalNEGAvita Health System Bucyrus Hospital Comment on above:Performed By: #### URINALYSIS, DIP #### [address] [place] [address] Protein (U) [Mass/Vol]NegativeNormalNEGAvita Health System Bucyrus HospitalComment on above:Performed By: #### URINALYSIS, DIP #### [address] [place] [address] Urobilinogen, Dipstick0.8Vwscyk5.2 - 1.0[facility] Comment on above:Performed By: #### URINALYSIS, DIP #### [address] [place] [address] pH (U)5.0 [pH]Normal5.0 - 9.0Memorial HospitalComment on above:Performed By: #### URINALYSIS, DIP #### [address] [place] [address] Blood, DipstickNegativeNormalNEGAvita Health System Bucyrus Hospital Comment on above:Performed By: #### URINALYSIS, DIP #### [address] [place] [address] Specific gravity (U) [Rel density]1.644Srgjww0.005 - 1.030Memorial HospitalComment on above:Performed By: #### URINALYSIS, DIP #### [address] [place] [address] Ketone, DipstickTRACEAbnormalNEGATIVEMemorial Hospital Comment on above:Performed By: #### URINALYSIS, DIP #### [address] [place] [address] Bilirubin, DipstickNegativeNormalNEGATIVEMemorial Hospital Comment on above:Performed By: #### URINALYSIS, DIP #### [address] [place] [address] Glucose, DipstickNegativeNormalNEGAvita Health System Bucyrus Hospital Comment on above:Performed By: #### URINALYSIS, DIP #### [address] [place] [address] Character (U)CLEARNormalCLEARMemorial HospitalComment on above:Performed By: #### URINALYSIS, DIP #### [address] [place] [address] Color (U)YELLOWNormalMemorial HospitalComment on above: Performed By: #### URINALYSIS, DIP #### [address] [place] [address] Age at specimen collection=NormalMemorial HospitalComment on above:Performed By: #### URINALYSIS, DIP #### [address] [place] [address] Encounters Encounter DateEncounter TypeCare ProviderFacilityStart: 09-19-2023 End: 85-41-1243nwtrtcswqmLfedlx G Cadigan MDFacility:[facility] ClinicStart: 05-47-1392mqxpjkacrlMKAOV D HIGHLANDERFacility:E1Ekwei: 03-08-2022 End: 06-53-8342iifrjdehxjBJSKG D HIGHLANDERFacility:X4Bcvgz: 02-08-2022 End: 57-15-0268ungexblifzHNUQS D HIGHLANDERFacility:E9Mwsdq: 12-17-2021 End: 63-51-1592suoidmckjbWZ ANA HOUSEFacility:K8Ibczl: 11-18-2021 End: 73-85-7903rpluwdepaoQH ANA HOUSEFacility:V2Xnzzo: 09-09-2021 End: 36-41-0261gzupjjwaqyWU ISIDRO PAYFacility:H1 Payers DatePayer CategoryPayerPolicy [id number] 1961Unknown [id number] 2..[id number] 2..[id number] 2..[id number] 2..[id number] 2..[id number] [id number] [id number] Summary Purpose Family History No Family History Records FoundNo Family History Records FoundNo Family History Records Found Advance Directives No Advanced Directives Records FoundNo Advanced Directives Records FoundNo Advanced Directives Records Found Additional Source Comments INFORMATION SOURCE (unrecogn ized section and content) DATE CREATED AUTHOR 08/10/2019 [facility] DATE CREATED AUTHOR AUTHOR'S ORGANIZ ATION 04/02/2022 [facility] DATE CREATED AUTHOR AUTHOR'S ORGANIZ ATION 12/02/2023 [facility] FOR RECORDS PERTAINING TO PATIENTS WHO ARE [...] BE BASED ON THE PRIMARY CLINICAL RECORDS. [facility] [employer] provides no warranty or guarantee of the accuracy or completeness of information in this document.
== END 2025-08-07 13:22 | disposition home or self-care (01) ==
PROVIDERS: Emergency Provider Emergency Medicine
DX: M70.71 Other bursitis of hip, right hip (principal)
CPT/HCPCS: 73502; 96372; 99284; J1885; J2360; J7512